=== PATIENT | female | born 1930 | race Caucasian/White ===

== ENCOUNTER → 2016-10-25 | Outpatient (CLI) | payer MEDICARE, BC, OTHER ==
[2016-10-25 09:05] LABS: ALANINE AMINOTRANSFERASE 24 U/L (9-52); ALBUMIN 3.5 g/dL (3.5-5.0); ALKALINE PHOSPHATASE 102 U/L (38-126); ANION GAP 9 (5-19); ASPARTATE AMINO TRANSFERASE 30 U/L (14-36); BILIRUBIN,TOTAL 0.6 mg/dL (0.2-1.3); BLOOD UREA NITROGEN 36 mg/dL (7-20); CALCIUM 9.5 mg/dL (8.4-10.2); CARBON DIOXIDE 25 mmol/L (22-30); CHLORIDE 97 mmol/L (98-107); CREATININE RESULT 0.85 mg/dL (0.52-1.25); Direct HDL 84 mg/dL (>40); GLUCOSE 90 mg/dL (75-110); POTASSIUM 5.2 mmol/L (3.6-5.0); SODIUM 131.2 mmol/L (137-145); TOTAL PROTEIN 6.4 g/dL (6.3-8.2); TRIGLYCERIDES 113 mg/dL (<150)
[2016-10-25 09:16] LABS: DIRECT LDL 114 mg/dL (<100)
== END ==
LOC: OD 07:27
PROVIDERS: ATTEND Internal Medicine
DX: E78.4 Other hyperlipidemia (principal); I10 Essential (primary) hypertension; E11.9 Type 2 diabetes mellitus without complications; Z79.899 Other long term (current) drug therapy; R09.89 Other specified symptoms and signs involving the circulatory and respiratory systems; I48.0 Paroxysmal atrial fibrillation; I34.0 Nonrheumatic mitral (valve) insufficiency; I25.2 Old myocardial infarction; I35.0 Nonrheumatic aortic (valve) stenosis
CPT/HCPCS: 36415; 80053; 80061

== ENCOUNTER 2016-12-02 18:27 | Emergency (ER) | payer MEDICARE, BC, OTHER ==
--- NOTE | 2016-12-02 19:02 | ER Document Report ---
ED Medical Screen (RME) - General Chief Complaint: Thumb Injury Stated Complaint: RIGHT THUMB INJURY Mode of Arrival: Wheelchair Information source: Patient Notes: Patient presents to the emergency department with right thumb injury. Reports she slammed it in the medicine cabinet. I have greeted and performed a rapid initial assessment of this patient. A comprehensive ED assessment and evaluation of the patient, analysis of test results and completion of the medical decision making process will be conducted by additional ED providers. TRAVEL OUTSIDE OF THE [place] IN LAST 30 DAYS: No - Related Data Allergies/Adverse Reactions: amoxicillin trihydrate [From Augmentin] Allergy (Verified 07/23/16 16:32) atorvastatin calcium [From Lipitor] Allergy (Verified 07/23/16 16:32) bacitracin [From Neosporin] Allergy (Verified 07/23/16 16:32) bacitracin zinc [From Neosporin] Allergy (Verified 07/23/16 16:32) calcitonin,salmon,synthetic [From Miacalcin] Allergy (Verified 07/23/16 16:32) celecoxib [From Celebrex] Allergy (Verified 07/23/16 16:32) ezetimibe [From Vytorin 10-10] Allergy (Verified 07/23/16 16:32) gramicidin D [From Neosporin] Allergy (Verified 07/23/16 16:32) irbesartan [From Avapro] Allergy (Verified 07/23/16 16:32) meloxicam [From Mobic] Allergy (Verified 07/23/16 16:32) morphine [Morphine] Allergy (Verified 07/23/16 16:32) moxifloxacin HCl [From Avelox] Allergy (Verified 07/23/16 16:32) neomycin sulfate [From Neosporin] Allergy (Verified 07/23/16 16:32) polymyxin B [From Neosporin] Allergy (Verified 07/23/16 16:32) polymyxin B sulfate [From Neosporin] Allergy (Verified 07/23/16 16:32) Potassium Clavulanate * [From Augmentin] Allergy (Verified 07/23/16 16:32) rofecoxib [From Vioxx] Allergy (Verified 07/23/16 16:32) simvastatin [From Vytorin 10-10] Allergy (Verified 07/23/16 16:32) tetracycline [Tetracycline] Allergy (Verified 07/23/16 16:32) Past Medical History - Past Medical History Cardiac Medical History: Reports: Hx Atrial Fibrillation, Hx Coronary Artery Disease, Hx Heart Attack - STATES TOLD HAD SILENT ME, Hx Hypertension Pulmonary Medical History: Denies: Hx Asthma, Hx Bronchitis, Hx COPD, Hx Pneumonia Neurological Medical History: Reports: 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 Denies: Hx Seizures Endocrine Medical History: Reports: Hx Diabetes Mellitus Type 2 Musculoskeltal Medical History: Reports Hx Arthritis Past Surgical History: Reports: Hx Cholecystectomy, Hx Hysterectomy, Hx Oral Surgery - dental, Hx Orthopedic Surgery - L knee replacement, trigger finger, Hx Tonsillectomy - Immunizations Hx Diphtheria, Pertussis, Tetanus Vaccination: Yes - 12/29/12 Physical Exam - Vital signs Vitals: Temp Pulse Resp BP Pulse Ox 97.5 F 75 18 148/68 H 97 12/02/16 18:34 12/02/16 18:34 12/02/16 18:34 12/02/16 18:34 12/02/16 18:34 Course - Vital Signs Vital signs: Temp Pulse Resp BP Pulse Ox 97.5 F 75 18 148/68 H 97 12/02/16 18:34 12/02/16 18:34 12/02/16 18:34 12/02/16 18:34 12/02/16 18:34
--- NOTE | 2016-12-02 20:46 | ER Document Report ---
HPI - HPI Patient complains to provider of: finger injury Pain Level: 4 Context: Patient is a 86 old female presents emergency Department complaining of right thumb pain. Patient states that she was at her home and was closing a filing cabinet drawer which slammed and caught into the nail bed. Patient admits to pain and swelling. The full range of motion and sensation - REPRODUCTIVE Reproductive: DENIES: : - DERM Skin Color: Normal, [place] Past Medical History - General Information source: Patient - Social History Smoking Status: Never Smoker Family History: Reviewed & Not Pertinent Patient has suicidal ideation: No Patient has homicidal ideation: No - Past Medical History Cardiac Medical History: Reports: Hx Atrial Fibrillation, Hx Coronary Artery Disease, Hx Heart Attack - STATES TOLD HAD SILENT [place], Hx Hypertension Pulmonary Medical History: Denies: Hx Asthma, Hx Bronchitis, Hx COPD, Hx Pneumonia Neurological Medical History: Reports: 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 Denies: Hx Seizures Endocrine Medical History: Reports: Hx Diabetes Mellitus Type 2 Renal/ Medical History: Denies: Hx Peritoneal Dialysis Musculoskeltal Medical History: Reports Hx Arthritis Past Surgical History: Reports: Hx Cholecystectomy, Hx Hysterectomy, Hx Oral Surgery - dental, Hx Orthopedic Surgery - L knee replacement, trigger finger, Hx Tonsillectomy - Immunizations Hx Diphtheria, Pertussis, Tetanus Vaccination: Yes - 12/29/12 Hx Pneumococcal Vaccination: 06/24/06 Vertical Provider Document - CONSTITUTIONAL Agree With Documented VS: Yes Exam Limitations: No Limitations General Appearance: WD/WN, No Apparent Distress - INFECTION CONTROL TRAVEL OUTSIDE OF THE [place] IN LAST 30 DAYS: No - RESPIRATORY O2 Sat by Pulse Oximetry: 97 - CARDIOVASCULAR Pulses: Normal: Radial Notes: Capillary refill less than 2 seconds in all upper extremity digits. - MUSCULOSKELETAL/EXTREMETIES Musculoskeletal/Extremeties: MAEW, FROM, No Edema, Eccymosis - Evidence of ecchymosis under the nail bed but no evidence of subungual hematoma requiring drainage Notes: No evidence of bleeding or open wound. - NEURO Level of Consciousness: Awake, Alert, Appropriate Motor/Sensory: No Motor Deficit, No Sensory Deficit - DERM Integumentary: Warm, Dry, No Rash Course - Re-evaluation Re-evalutation: 12/02/16 20:45 Patient is a 6-year-old female complains of finger injury today. X-ray does not show any acute fracture. No evidence of some local hematoma requiring drainage. Patient instructed on icing and elevation as well as over-the- counter Tylenol as needed for pain. - Vital Signs Vital signs: Temp Pulse Resp BP Pulse Ox 97.5 F 75 18 148/68 H 97 12/02/16 18:34 12/02/16 18:34 12/02/16 18:34 12/02/16 18:34 12/02/16 18:34 Discharge - Discharge Clinical Impression: Finger injury Condition: Good Disposition: HOME, SELF-CARE Instructions: Ice & Elevation ([facility]), Acetaminophen Forms: Elevated Blood Pressure Referrals: ANJALI FONTAINE MD [Primary Care Provider] - Follow up as needed
[2016-12-02 20:59] VITALS: BP 150/58
== END 2016-12-02 21:10 | disposition home or self-care (01) ==
LOC: ER 18:27
DX: S69.91XA Unspecified injury of right wrist, hand and finger(s), initial encounter (principal); W23.0XXA Caught, crushed, jammed, or pinched between moving objects, initial encounter; I48.91 Unspecified atrial fibrillation; I25.10 Atherosclerotic heart disease of native coronary artery without angina pectoris; I10 Essential (primary) hypertension; E11.9 Type 2 diabetes mellitus without complications; Z90.49 Acquired absence of other specified parts of digestive tract; Z90.710 Acquired absence of both cervix and uterus; Z86.73 Personal history of transient ischemic attack (TIA), and cerebral infarction without residual deficits; Z96.652 Presence of left artificial knee joint; I25.2 Old myocardial infarction
CPT/HCPCS: 99283

== ENCOUNTER → 2016-12-04 | Outpatient (CLI) | payer MEDICARE, BC, OTHER ==
[~2016-12-04] MED LIST: REGADENOSON INJ 0.4 MG/5 ML DISP.SYRIN IV ONE
--- NOTE | 2016-12-05 19:15 | DRAGON STRESS TEST REPORT ---
Intravenous Lexiscan Cardiolite stress test using single photon emmision computerized tomography. Date of procedure: 12/04/2016. Ordering Provider: Dr. Meena Peck. Primary Care Physician: Dr. Joon Bolden. Indication: Chest pain and dyspnea on exertion. Coronary risk factors: Age, non -insulin-dependent diabetes mellitus, hypertension, and family history of coronary artery disease. Resting EKG: Sinus Rhythm. Within Normal Limits. Stress EKG: No changes of ischemia. The patient had no chest pain or discomfort, and there were no arrhythmias seen. Reason for termination: Protocol. Conclusions: Normal EKG and hemodynamic response to IV Lexiscan. Nuclear data: At rest the patient was given 11.77 millicuries of technetium 99m sestamibi injected intravenously. As per protocol rest non gated SPECT images were obtained. Subsequently the patient was given intravenous Lexiscan at a dose of 0.4 mg in 5 mL intravenously, followed by flush with normal saline. Subsequently the stress dose of 36.0 millicuries of technetium 99m sestamibi was injected intravenously. As per protocol stress gated images were obtained. Nuclear interpretation: Review of images showed that there is a perfusion defect in the mid and basal inferior kessler which is slightly more prominent in the stress images compared with the rest images. This area has decreased motion contraction and thickening by gated study. Also there is a mild perfusion defect in the distal inferolateral wall in both the rest and stress images. This area of the distal inferolateral wall has diminished motion contraction and thickening. The rest of the segments of the myocardium had normal perfusion at rest, and normal perfusion post stress with IV Lexiscan. The rest of the Segments of the myocardium had normal motion, contraction, and thickening by gated study. T. I D. ratio was abnormal at 1.36. Visually this is not reliable.. Computer read rest, and stress left ventricular ejection fraction were 69 %, and an 73 % , respectively. Conclusion: 1. There is scintigraphic evidence of Lexiscan induced minimal myocardial ischemia in a setting of scar in the mid and basal inferior kessler 2. There is scintigraphic evidence of mild myocardial infarction/scar involving the distal inferolateral wall. Recommendations: 1.aggressive treatment of coronary artery disease. 2.if the patient continues to be symptomatic with chest pains and dyspnea on exertion, then would recommend a cardiac catheterization to see if patient has ischemic mitral regurgitation, and the extent of presence of coronary artery disease the patient. 3.Aggressive risk factor modification, and treating the underlying co- morbidities. MTDD
== END ==
LOC: RAD 06:53
PROVIDERS: ATTEND Specialist
DX: R07.9 Chest pain, unspecified (principal); R06.09 Other forms of dyspnea
CPT/HCPCS: 93017; 78452; A9500; J2785; Q9969

== ENCOUNTER 2016-12-05 18:29 | Inpatient (IN) | payer MEDICARE, BC, OTHER ==
[2016-12-05] MEDS ORDERED: NORMAL SALINE 1000 ML 1,000 ML IV ONE ×2 (20:13→23:00)
--- NOTE | 2016-12-05 20:14 | ER Document Report ---
ED General - General Chief Complaint: Nausea/Vomiting Stated Complaint: NAUSEA,VOMITING Notes: Patient is an 86-year-old female who presents with persistent vomiting. States that she woke up feeling slightly unwell today but then began having persistent vomiting shortly after eating breakfast. States she had 7-8 episodes of vomiting and has been unable to tolerate any oral intake since that time. The vomitus was described as the contents of what she had eaten for breakfast as well as yellowish liquid. She did not have any diarrheal bowel movements. Denies any focal abdominal pain. No history of similar symptoms in the past. Nothing was noted to improve or worsen her symptoms. She has not seen her primary care doctor regarding today's concerns. TRAVEL OUTSIDE OF THE [place] IN LAST 30 DAYS: No - Related Data Allergies/Adverse Reactions: amoxicillin trihydrate [From Augmentin] Allergy (Verified 07/23/16 16:32) atorvastatin calcium [From Lipitor] Allergy (Verified 07/23/16 16:32) bacitracin [From Neosporin] Allergy (Verified 07/23/16 16:32) bacitracin zinc [From Neosporin] Allergy (Verified 07/23/16 16:32) calcitonin,salmon,synthetic [From Miacalcin] Allergy (Verified 07/23/16 16:32) celecoxib [From Celebrex] Allergy (Verified 07/23/16 16:32) ezetimibe [From Vytorin 10-10] Allergy (Verified 07/23/16 16:32) gramicidin D [From Neosporin] Allergy (Verified 07/23/16 16:32) irbesartan [From Avapro] Allergy (Verified 07/23/16 16:32) meloxicam [From Mobic] Allergy (Verified 07/23/16 16:32) morphine [Morphine] Allergy (Verified 07/23/16 16:32) moxifloxacin HCl [From Avelox] Allergy (Verified 07/23/16 16:32) neomycin sulfate [From Neosporin] Allergy (Verified 07/23/16 16:32) polymyxin B [From Neosporin] Allergy (Verified 07/23/16 16:32) polymyxin B sulfate [From Neosporin] Allergy (Verified 07/23/16 16:32) Potassium Clavulanate * [From Augmentin] Allergy (Verified 07/23/16 16:32) rofecoxib [From Vioxx] Allergy (Verified 07/23/16 16:32) simvastatin [From Vytorin 10-10] Allergy (Verified 07/23/16 16:32) tetracycline [Tetracycline] Allergy (Verified 07/23/16 16:32) Past Medical History - General Information source: Patient - Social History Smoking Status: Never Smoker Frequency of alcohol use: None Drug Abuse: None Lives with: Alone Family History: Reviewed & Not Pertinent - Past Medical History Cardiac Medical History: Reports: Hx Atrial Fibrillation, Hx Coronary Artery Disease, Hx Heart Attack - STATES TOLD HAD SILENT CT, Hx Hypertension Pulmonary Medical History: Denies: Hx Asthma, Hx Bronchitis, Hx COPD, Hx Pneumonia Neurological Medical History: Reports: 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 Denies: Hx Seizures Endocrine Medical History: Reports: Hx Diabetes Mellitus Type 2 Renal/ Medical History: Denies: Hx Peritoneal Dialysis Musculoskeltal Medical History: Reports Hx Arthritis Past Surgical History: Reports: Hx Cholecystectomy, Hx Hysterectomy, Hx Oral Surgery - dental, Hx Orthopedic Surgery - L knee replacement, trigger finger, Hx Tonsillectomy - Immunizations Hx Diphtheria, Pertussis, Tetanus Vaccination: Yes - 12/29/12 Hx Pneumococcal Vaccination: 06/24/06 Review of Systems - Review of Systems Notes: Constitutional: Negative for fever. HENT: Negative for sore throat. Eyes: Negative for visual changes. Cardiovascular: Negative for chest pain. Respiratory: Negative for shortness of breath. Gastrointestinal: Negative for abdominal pain, positive for vomiting Genitourinary: Negative for dysuria. Musculoskeletal: Negative for back pain. Skin: Negative for rash. Neurological: Negative for headaches, weakness or numbness. 10 point ROS negative except as marked above and in HPI. Physical Exam - Vital signs Vitals: Temp 97.5 F 12/05/16 18:39 Interpretation: Normal Notes: PHYSICAL EXAMINATION: GENERAL: Appears uncomfortable but in no acute distress HEAD: Atraumatic, normocephalic. EYES: Pupils equal round and reactive to light, extraocular movements intact, sclera anicteric, conjunctiva are normal. ENT: nares patent, oropharynx clear without exudates. Moderately dry mucous membranes. NECK: Normal range of motion, supple without lymphadenopathy LUNGS: Breath sounds clear to auscultation bilaterally and equal. No wheezes rales or rhonchi. HEART: Regular rate and rhythm without murmurs ABDOMEN: Soft, nontender, normoactive bowel sounds. No guarding, no rebound. No masses appreciated. EXTREMITIES: Normal range of motion, no pitting or edema. No cyanosis. NEUROLOGICAL: No focal neurological deficits. Moves all extremities spontaneously and on command. PSYCH: Normal mood, normal affect. SKIN: Warm, Dry, normal turgor, no rashes or lesions noted. Course - Re-evaluation Re-evalutation: 12/05/16 20:13 Patient presents with persistent nonbilious vomiting that started abruptly several hours prior to arrival. Evaluation, abdominal exam is benign without any focal tenderness rebound or guarding. Patient does not have a gallbladder and so biliary pathology seems unlikely. Likewise patient's clinical history and exam is not consistent with an acute appendicitis, pancreatitis, mesenteric ischemia, nephrolithiasis or pyelonephritis. Primary concern given patient's persistent vomiting and feeling of abdominal distention which is clinically apparent on exam is a small bowel obstruction versus an ileus. Will proceed with laboratories and a CT the abdomen and pelvis and reassess. 12/05/16 22:07 CT the abdomen and pelvis is normal. Patient does have a urinary tract infection which could induce her vomiting. However, patient began having extremely malodorous bowel movements here in the emergency department and continued to have difficulty tolerating oral intake. She has continued to have nonbilious vomiting and is having difficulty even tolerating water. Because of her difficulty tolerating oral intake and continued output of vomiting and diarrhea, she has been admitted to the hospitalist for observation and continued resuscitation - Vital Signs Vital signs: Temp Pulse Resp BP Pulse Ox 98.2 F 80 16 125/89 H 98 12/06/16 02:00 12/05/16 18:46 12/06/16 01:01 12/06/16 01:00 12/05/16 23:59 - Laboratory Result Diagrams: 12/05/16 18:42 12/05/16 20:30 Laboratory results interpreted by me: 12/05/16 12/05/16 12/05/16 18:42 19:16 20:30 WBC 16.5 H Seg Neuts % (Manual) 92 H Band Neutrophils % 2 L Lymphocytes % (Manual) 2 L Abs Neuts (Manual) 15.5 H Abs Lymphs (Manual) 0.3 L Carbon Dioxide 20 L BUN 27 H Glucose 160 H Total Protein 6.2 L Urine Ketones TRACE H Ur Leukocyte Esterase MODERATE H Urine Ascorbic Acid 40 H - Diagnostic Test Radiology reviewed: Reports reviewed Discharge - Discharge Clinical Impression: Vomiting Qualifiers: Vomiting type: unspecified Vomiting Intractability: non-intractable Nausea presence: with nausea Qualified Code(s): R11.2 - Nausea with vomiting, unspecified Urinary tract infection Qualifiers: Urinary tract infection type: acute cystitis Hematuria presence: without hematuria Qualified Code(s): N30.00 - Acute cystitis without hematuria Diarrhea Qualifiers: Diarrhea type: infectious Qualified Code(s): A09 - Infectious gastroenteritis and colitis, unspecified Condition: Good Disposition: ADMITTED OBSERVATION Admitting Provider: [facility] Admitted: Telemetry
[2016-12-05 20:15] LABS: HEMATOCRIT 39.4 % (36.0-47.0); HEMOGLOBIN 13.1 g/dL (12.0-15.5); HGB HCT DIFFERENCE -0.1; MEAN CORPUSCULAR HEMOGLOBIN 30.4 pg (27.0-33.4); MEAN CORPUSCULAR HGB CONC 33.2 g/dL (32.0-36.0); MEAN CORPUSCULAR VOLUME 92 fl (80-97); RED BLOOD COUNT 4.29 10^6/uL (3.72-5.28); RED CELL DISTRIBUTION WIDTH 13.8 % (11.5-14.0); WHITE BLOOD COUNT 16.5 10^3/uL (4.0-10.5)
[2016-12-05 20:30] LABS: BAND NEUTROPHILS % (MANUAL) 2 % (3-5); BASOPHILS % (MANUAL) 0 % (0-2); EOSINOPHILS % (MANUAL) 1 % (0-6); LYMPHOCYTES % (MANUAL) 2 % (13-45); TOTAL CELLS COUNTED 100
[2016-12-05 20:31] LABS: RBC MORPHOLOGY COMMENT NORMO-CYTIC/CHROMIC
[2016-12-05 20:44] LABS: APPEARANCE,URINE SLIGHTLY-CLOUDY; BILIRUBIN,URINE NEGATIVE (NEGATIVE); GLUCOSE, URINE NEGATIVE (NEGATIVE); KETONES,URINE TRACE mg/dL (NEGATIVE); LEUKOCYTE ESTERASE,URINE MODERATE (NEGATIVE); NITRITE,URINE NEGATIVE (NEGATIVE); PROTEIN,URINE NEGATIVE (NEGATIVE); URINE SPECIFIC GRAVITY 1.021; UROBILINOGEN,URINE NEGATIVE mg/dL (<2.0)
[2016-12-05 21:01] LABS: ALANINE AMINOTRANSFERASE 25 U/L (9-52); ALBUMIN 3.9 g/dL (3.5-5.0); ALKALINE PHOSPHATASE 100 U/L (38-126); ANION GAP 13 (5-19); ASPARTATE AMINO TRANSFERASE 27 U/L (14-36); BILIRUBIN,DIRECT 0.1 mg/dL (0.0-0.4); BILIRUBIN,TOTAL 0.5 mg/dL (0.2-1.3); BLOOD UREA NITROGEN 27 mg/dL (7-20); CALCIUM 9.4 mg/dL (8.4-10.2); CARBON DIOXIDE 20 mmol/L (22-30); CHLORIDE 105 mmol/L (98-107); CREATININE RESULT 0.69 mg/dL (0.52-1.25); GLUCOSE 160 mg/dL (75-110); LIPASE 96.2 U/L (23-300); POTASSIUM 4.2 mmol/L (3.6-5.0); SODIUM 138.2 mmol/L (137-145); TOTAL PROTEIN 6.2 g/dL (6.3-8.2)
[2016-12-05] MEDS ORDERED: CEFTRIAXONE 1 GM/D5W RTU 50 ML IV ONE (21:46)
[2016-12-05] MEDS ORDERED: ONDANSETRON ODT 4 MG TAB (6 TAB/DSPK) PO PRN (22:10)
[2016-12-05] MEDS ORDERED: NORMAL SALINE 1000 ML 1,000 ML IV PRN (23:45)
[2016-12-05] MEDS ORDERED: DEXTROSE 40% GEL 15 GM TUBE PO PRN ×2 (23:52)
[2016-12-05] MEDS ORDERED: GLUCAGON,HUMAN RECOMB 1 MG INJ IM PRN (23:52)
[2016-12-05] MEDS ORDERED: ACETAMINOPHEN 325 MG TABLET PO PRN (23:52)
[2016-12-05] MEDS ORDERED: ONDANSETRON HCL INJ/PF 4 MG/2 ML SDV IV PRN (23:52)
[2016-12-05] MEDS ORDERED: IPRATROPIUM/ALBUTEROL 0.5-2.5 MG/3 ML AMPUL NEB PRN (23:52)
[2016-12-05] MEDS ORDERED: DEXTROSE 50%-WATER 25 GM/50 ML DISP.SYRIN IV PRN ×2 (23:52)
[2016-12-06] MEDS: METRONIDAZOLE 500 MG TABLET PO SCH ×5 (01:28→23:33)
--- NOTE | 2016-12-06 03:29 | PDOC H&P ---
History of Present Illness Admission Date/PCP: 12/05/16 23:53 PIETRO CASON, Patient complains of: Nausea vomiting and diarrhea History of Present Illness: JUAN BRANTLEY is a 86 year old female with a past medical history of diabetes , dyslipidemia, coronary artery disease, CVA, hypertension and diverticular disease who had been her usual state of health until approximately 12 hours prior to presentation. She admits approximately 8 episodes of vomiting gastric content following her a.m. meal once in the emergency room she developed severe diarrhea. She admits to suspect meal the night before, denies new medication, significant constipation or fever. In the emergency room she's found to have leukocytosis and intractable nausea vomiting diarrhea and referred to the hospitalist for admission. Past Medical History Cardiac Medical History: Reports: Atrial Fibrillation, Coronary Artery Disease, Myocardial Infarction - STATES TOLD HAD SILENT [place], Hypertension Pulmonary Medical History: Denies: Asthma, Bronchitis, Chronic Obstructive Pulmonary Disease (COPD), Pneumonia Neurological Medical History: Denies: Seizures Endocrine Medical History: Reports: Diabetes Mellitus Type 2 Musculoskeltal Medical History: Reports: Arthritis Hematology: Denies: Anemia, Sickle Cell Disease Past Surgical History Past Surgical History: Reports: Cholecystectomy, Hysterectomy, Orthopedic Surgery - L knee replacement, trigger finger, Tonsillectomy Denies: Amputation Social History Information Source: Patient Lives with: Alone Smoking Status: Never Smoker Frequency of Alcohol Use: None Drugs: None - Advance Directive Resuscitation Status: Full Code Family History Family History: Hypertension Parental Family History Reviewed: Yes Children Family History Reviewed: Yes Sibling(s) Family History Reviewed.: Yes Medication/Allergy Home Medications: Acetaminophen [Tylenol 325 mg Tablet] 650 mg PO Q4HP PRN 02/11/12 Amoxicillin Trihydrate [Amoxil 500 mg Capsule] 4 tab PO ASDIR PRN 02/11/12 Aspirin [Aspirin 81 mg Chewable Tablet] 81 mg PO DAILY 02/11/12 Docusate Sodium [Colace 100 mg Capsule] 2 tab PO DAILY 02/11/12 Folic Acid 1 mg PO DAILY 02/11/12 Lisinopril [Prinivil 10 mg Tablet] 10 mg PO DAILY 02/11/12 Metformin HCl [Glucophage 500 mg Tablet] 500 mg PO DAILY 02/11/12 Metoprolol Tartrate [Lopressor 25 mg Tablet] 50 mg PO BID 02/11/12 Multivitamin [Multivitamins] 1 each PO DAILY 02/11/12 Psyllium Seed [Metamucil-Sf Powder 5.85 gm Packet] 1 each PO DAILY 02/11/12 Nitroglycerin 0.4 mg SL ASDIR #20 tab.subl 07/25/14 Levothyroxine Sodium 50 mcg PO DAILY 08/26/15 Ergocalciferol (Vitamin D2) [Vitamin D2] 50,000 unit PO ASDIR PRN 07/23/16 Hydrochlorothiazide 25 mg PO DAILY 07/23/16 Hydrocortisone/Pramoxine [Analpram Hc 1% Cream] 30 gm RC ASDIR PRN 07/23/16 Nitroglycerin [Nitroglycerin Patch] 1 each TD DAILY 07/23/16 Vit C/E/Zn/Coppr/Lutein/Zeaxan [Preservision Areds 2 Softgel] 2 each PO BID Cephalexin Monohydrate [Keflex 500 mg Capsule] 500 mg PO QID #20 capsule Allergies/Adverse Reactions: amoxicillin trihydrate [From Augmentin] Allergy (Verified 07/23/16 16:32) atorvastatin calcium [From Lipitor] Allergy (Verified 07/23/16 16:32) bacitracin [From Neosporin] Allergy (Verified 07/23/16 16:32) bacitracin zinc [From Neosporin] Allergy (Verified 07/23/16 16:32) calcitonin,salmon,synthetic [From Miacalcin] Allergy (Verified 07/23/16 16:32) celecoxib [From Celebrex] Allergy (Verified 07/23/16 16:32) ezetimibe [From Vytorin 10-10] Allergy (Verified 07/23/16 16:32) gramicidin D [From Neosporin] Allergy (Verified 07/23/16 16:32) irbesartan [From Avapro] Allergy (Verified 07/23/16 16:32) meloxicam [From Mobic] Allergy (Verified 07/23/16 16:32) morphine [Morphine] Allergy (Verified 07/23/16 16:32) moxifloxacin HCl [From Avelox] Allergy (Verified 07/23/16 16:32) neomycin sulfate [From Neosporin] Allergy (Verified 07/23/16 16:32) polymyxin B [From Neosporin] Allergy (Verified 07/23/16 16:32) polymyxin B sulfate [From Neosporin] Allergy (Verified 07/23/16 16:32) Potassium Clavulanate * [From Augmentin] Allergy (Verified 07/23/16 16:32) rofecoxib [From Vioxx] Allergy (Verified 07/23/16 16:32) simvastatin [From Vytorin 10-10] Allergy (Verified 07/23/16 16:32) tetracycline [Tetracycline] Allergy (Verified 07/23/16 16:32) Review of Systems Constitutional: ABSENT: chills, fever(s), headache(s), weight gain, weight loss Eyes: ABSENT: visual disturbances Ears: ABSENT: hearing changes Cardiovascular: ABSENT: chest pain, dyspnea on exertion, edema, orthropnea, palpitations Respiratory: ABSENT: cough, hemoptysis Gastrointestinal: ABSENT: abdominal pain, constipation, diarrhea, hematemesis, hematochezia, nausea, vomiting Genitourinary: ABSENT: dysuria, hematuria Musculoskeletal: ABSENT: joint swelling Integumentary: ABSENT: rash, wounds Neurological: ABSENT: abnormal gait, abnormal speech, confusion, dizziness, focal weakness, syncope Psychiatric: ABSENT: anxiety, depression, homidical ideation, suicidal ideation Endocrine: ABSENT: cold intolerance, heat intolerance, polydipsia, polyuria Hematologic/Lymphatic: ABSENT: easy bleeding, easy bruising Physical Exam Vital Signs: Temp Pulse Resp BP Pulse Ox 98.2 F 80 16 125/89 H 98 12/06/16 02:00 12/05/16 18:46 12/06/16 01:01 12/06/16 01:00 12/05/16 23:59 General appearance: PRESENT: no acute distress, well-developed, well-nourished Head exam: PRESENT: atraumatic, normocephalic Eye exam: PRESENT: conjunctiva pink, EOMI, PERRLA. ABSENT: scleral icterus Ear exam: PRESENT: normal external ear exam Mouth exam: PRESENT: moist, tongue midline Neck exam: ABSENT: carotid bruit, JVD, lymphadenopathy, thyromegaly Respiratory exam: PRESENT: clear to auscultation italo. ABSENT: rales, rhonchi, wheezes Cardiovascular exam: PRESENT: RRR. ABSENT: diastolic murmur, rubs, systolic murmur Pulses: PRESENT: normal dorsalis pedis pul Vascular exam: PRESENT: normal capillary refill GI/Abdominal exam: PRESENT: normal bowel sounds, soft. ABSENT: distended, guarding, mass, organolmegaly, rebound, tenderness Rectal exam: PRESENT: deferred Extremities exam: PRESENT: full ROM. ABSENT: calf tenderness, clubbing, pedal edema Neurological exam: PRESENT: alert, awake, oriented to person, oriented to place , oriented to time, oriented to situation, CN II-XII grossly intact. ABSENT: motor sensory deficit Psychiatric exam: PRESENT: appropriate affect, normal mood. ABSENT: homicidal ideation, suicidal ideation Skin exam: PRESENT: dry, intact, warm. ABSENT: cyanosis, rash Results Impressions: Abdomen/Pelvis CT 12/05/16 20:13 IMPRESSION: No evidence for bowel obstruction. NO ACUTE FINDING IN THE ABDOMEN OR PELVIS ON CT SCAN WITH IV CONTRAST. Assessment & Plan - Diagnosis (1) Gastroenteritis Is this a current diagnosis for this admission?: YesPlan: Given the revelation of a suspect meal this likely represents gastroenteritis she is started on symptomatic management IV fluid and electrolyte repletion (2) Diabetes 1.5, managed as type 2 Is this a current diagnosis for this admission?: YesPlan: Clear liquid diet Humalog sliding scale holding metformin (3) Urinary tract infection Qualifiers: Urinary tract infection type: acute cystitis Hematuria presence: without hematuria Qualified Code(s): N30.00 - Acute cystitis without hematuria Is this a current diagnosis for this admission?: YesPlan: Urine culture obtained and pending empiric Rocephin initiated - Time Time Spent: 50 to 70 Minutes
[2016-12-06] MEDS: LEVOTHYROXINE SODIUM 0.05 MG TABLET PO SCH (06:34)
[2016-12-06] MEDS: HEPARIN SOD (PORCINE) 5,000 UNIT/ML 1 ML SYRINGE SUBCUT SCH ×2 (06:35→13:31)
[2016-12-06 06:45] LABS: HEMOGLOBIN 12.1 g/dL (12.0-15.5); HGB HCT DIFFERENCE 0.3; MEAN CORPUSCULAR HEMOGLOBIN 30.6 pg (27.0-33.4); MEAN CORPUSCULAR HGB CONC 33.6 g/dL (32.0-36.0); MEAN CORPUSCULAR VOLUME 91 fl (80-97); RED BLOOD COUNT 3.95 10^6/uL (3.72-5.28); RED CELL DISTRIBUTION WIDTH 13.9 % (11.5-14.0)
[2016-12-06 06:51] LABS: ALANINE AMINOTRANSFERASE 27 U/L (9-52); ALBUMIN 3.5 g/dL (3.5-5.0); ALKALINE PHOSPHATASE 81 U/L (38-126); ASPARTATE AMINO TRANSFERASE 30 U/L (14-36); BILIRUBIN,DIRECT 0.1 mg/dL (0.0-0.4); BILIRUBIN,TOTAL 0.4 mg/dL (0.2-1.3); BLOOD UREA NITROGEN 27 mg/dL (7-20); CALCIUM 8.6 mg/dL (8.4-10.2); CARBON DIOXIDE 22 mmol/L (22-30); CHLORIDE 107 mmol/L (98-107); GLUCOSE 136 mg/dL (75-110); POTASSIUM 3.8 mmol/L (3.6-5.0); TOTAL PROTEIN 5.9 g/dL (6.3-8.2)
[2016-12-06 06:56] LABS: ANION GAP 13 (5-19); SODIUM 141.6 mmol/L (137-145)
[2016-12-06 07:16] LABS: BASOPHILS % (MANUAL) 0 % (0-2); TOTAL CELLS COUNTED 100
[2016-12-06 07:26] LABS: BAND NEUTROPHILS % (MANUAL) 14 % (3-5); EOSINOPHILS % (MANUAL) 1 % (0-6); LYMPHOCYTES % (MANUAL) 2 % (13-45)
[2016-12-06 07:28] LABS: RBC MORPHOLOGY COMMENT NORMO-CYTIC/CHROMIC; TOXIC GRANULATION SLIGHT; TOXIC VACUOLATION PRESENT
[2016-12-06] MEDS ORDERED: ASPIRIN 81 MG TABLET, CHEWABLE PO SCH (10:00)
[2016-12-06] MEDS: FOLIC ACID 1 MG TABLET PO SCH (11:00)
[2016-12-06] MEDS: HYDROCHLOROTHIAZIDE 25 MG TABLET PO SCH (11:23)
[2016-12-06] MEDS: METOPROLOL TARTRATE 50 MG TABLET PO SCH (11:23)
--- NOTE | 2016-12-06 11:58 | PDOC PROGRESS REPORT ---
Subjective Progress Note for:: 12/06/16 Subjective:: Patient is extremely weak and nauseous She does not have any vomiting, but diarrhea still persistent watery quite profuse No blood no mucus C. difficile toxin was negative CT abdomen and pelvis was unremarkable her daughter at the bedside had similar symptoms in the last 24 hours , Physical Exam Vital Signs: Temp Pulse Resp BP Pulse Ox 98.2 F 78 14 107/42 L 96 12/06/16 07:19 12/06/16 10:46 12/06/16 10:23 12/06/16 10:46 12/06/16 10:46 Intake & Output 12/05/16 12/06/16 12/07/16 00:59 00:59 00:59 Intake Total 1200 Balance 1200 Weight 88.3 kg General appearance: PRESENT: no acute distress, well-developed, well-nourished, other - Pale and looks ill Head exam: PRESENT: atraumatic, normocephalic Eye exam: PRESENT: conjunctiva pink, EOMI, PERRLA. ABSENT: scleral icterus Ear exam: PRESENT: normal external ear exam Mouth exam: PRESENT: moist, tongue midline Neck exam: ABSENT: carotid bruit, JVD, lymphadenopathy, thyromegaly Respiratory exam: PRESENT: clear to auscultation italo. ABSENT: rales, rhonchi, wheezes Cardiovascular exam: PRESENT: RRR. ABSENT: diastolic murmur, rubs, systolic murmur Pulses: PRESENT: normal dorsalis pedis pul Vascular exam: PRESENT: normal capillary refill GI/Abdominal exam: PRESENT: normal bowel sounds, soft. ABSENT: distended, guarding, mass, organolmegaly, rebound, tenderness Rectal exam: PRESENT: deferred Extremities exam: PRESENT: full ROM. ABSENT: calf tenderness, clubbing, pedal edema Neurological exam: PRESENT: alert, awake, oriented to person, oriented to place , oriented to time, oriented to situation, CN II-XII grossly intact. ABSENT: motor sensory deficit Psychiatric exam: PRESENT: appropriate affect, normal mood. ABSENT: homicidal ideation, suicidal ideation Skin exam: PRESENT: dry, intact, warm. ABSENT: cyanosis, rash Results Laboratory Results: 12/06/16 06:18 12/06/16 06:18 12/06/16 12/06/16 06:18 06:18 WBC 8.0 RBC 3.95 Hgb 12.1 Hct 36.0 MCV 91 MCH 30.6 MCHC 33.6 RDW 13.9 Plt Count 215 Seg Neutrophils % Not Reportable Lymphocytes % Not Reportable Monocytes % Not Reportable Eosinophils % Not Reportable Basophils % Not Reportable Absolute Neutrophils Not Reportable Absolute Lymphocytes Not Reportable Absolute Monocytes Not Reportable Absolute Eosinophils Not Reportable Absolute Basophils Not Reportable Sodium 141.6 Potassium 3.8 Chloride 107 Carbon Dioxide 22 Anion Gap 13 BUN 27 H Creatinine 0.70 Est GFR ( Amer) > 60 Est GFR (Non-Af Amer) > 60 Glucose 136 H Calcium 8.6 Total Bilirubin 0.4 AST 30 ALT 27 Alkaline Phosphatase 81 Total Protein 5.9 L Albumin 3.5 12/05/16 12/05/16 19:16 23:29 Urine Ketones TRACE H Ur Leukocyte Esterase MODERATE H Urine WBC (Auto) 18 C. difficile Tox (PCR) NEGATIVE 12/05/16 23:29 - Preliminary Stool - Stool Stool Culture - Pending 12/05/16 19:16 Urine Culture - Preliminary Clean Catch Midstream NO GROWTH IN 1 DAY Impressions: Abdomen/Pelvis CT 12/05/16 20:13 IMPRESSION: No evidence for bowel obstruction. NO ACUTE FINDING IN THE ABDOMEN OR PELVIS ON CT SCAN WITH IV CONTRAST. Assessment & Plan - Diagnosis (1) Dehydration Is this a current diagnosis for this admission?: YesPlan: Continue IV fluids (2) Diabetes Qualifiers: Diabetes mellitus type: type 2 Diabetes mellitus complication status: with unspecified complications Diabetes mellitus [facility] insulin use: without [facility] use Qualified Code(s): E11.8 - Type 2 diabetes mellitus with unspecified complications Is this a current diagnosis for this admission?: YesPlan: We'll hold metformin Accu-Chek before meals at bedtime and lispro coverage (3) Gastroenteritis Is this a current diagnosis for this admission?: YesPlan: Continue Flagyl for now Continue hydration Clear liquids by mouth Reevaluate in a.m. - Time Time Spent with patient: 25-34 minutes
[2016-12-06 12:00] LABS: PATH REVIEW PATHOLOGIST REVIEWED
[2016-12-06] MEDS ORDERED: NORMAL SALINE 1000 ML 1,000 ML IV PRN (17:26)
[2016-12-06] MEDS ORDERED: ENOXAPARIN SODIUM INJ 80 MG/0.8 ML DISP.SYRIN SUBCUT ONE (19:00)
[2016-12-06] MEDS ORDERED: BISMUTH SUBSALICYLATE 262 MG TAB.CHEW PO PRN ×2 (19:13→19:47)
[2016-12-06] MEDS ORDERED: ASPIRIN 81 MG TABLET, ENT COATED PO ONE (19:30)
[2016-12-06] MEDS ORDERED: LACTOBACILLUS ACIDOPHILUS 250 MG TAB PO ONE (20:00)
--- NOTE | 2016-12-06 22:00 | EKG REPORT ---
SEVERITY:- BORDERLINE ECG - SINUS RHYTHM BORDERLINE LEFT AXIS DEVIATION BORDERLINE T ABNORMALITIES, ANTERIOR LEADS : Confirmed by: Ann-Marie Kramer 06-Dec-2016 22:00:27
[2016-12-06] MEDS: CEFTRIAXONE 1 GM/D5W RTU 1 GM/50 ML RTUPB IV SCH (23:04)
[2016-12-07] MEDS: ENOXAPARIN SODIUM INJ 80 MG/0.8 ML DISP.SYRIN SUBCUT SCH ×2 (05:41→18:55)
[2016-12-07] MEDS: METRONIDAZOLE 500 MG TABLET PO SCH ×2 (05:42→12:37)
[2016-12-07] MEDS: LEVOTHYROXINE SODIUM 0.05 MG TABLET PO SCH (05:42)
--- NOTE | 2016-12-07 12:35 | EKG REPORT ---
SEVERITY:- OTHERWISE NORMAL ECG - SINUS RHYTHM BORDERLINE LEFT AXIS DEVIATION : Confirmed by: Ann-Marie Kramer 07-Dec-2016 12:35:22
[2016-12-07] MEDS: LACTOBACILLUS ACIDOPHILUS 250 MG TAB PO SCH ×2 (12:36→18:55)
[2016-12-07] MEDS: FOLIC ACID 1 MG TABLET PO SCH (12:37)
[2016-12-07] MEDS: ASPIRIN 81 MG TABLET, ENT COATED PO SCH (12:37)
--- NOTE | 2016-12-07 15:37 | PDOC PROGRESS REPORT ---
Subjective Progress Note for:: 12/07/16 Subjective:: Patient has no complaints today Diarrhea has improved , almost resolved no chest pain no SOB lung scan was intermediate risk for PE and chest CTA was ordered troponins are positive but in downward trend Patient is still anticoagulated on Lovenox Physical Exam Vital Signs: Temp Pulse Resp BP Pulse Ox 97.9 F 74 16 126/44 H 100 12/07/16 08:05 12/07/16 08:05 12/07/16 08:05 12/07/16 08:05 12/07/16 08:05 Intake & Output 12/06/16 12/07/16 12/08/16 00:59 00:59 00:59 Intake Total 2282 Balance 2282 Weight 88.3 kg General appearance: PRESENT: no acute distress, well-developed, well-nourished Head exam: PRESENT: atraumatic, normocephalic Eye exam: PRESENT: conjunctiva pink, EOMI, PERRLA. ABSENT: scleral icterus Ear exam: PRESENT: normal external ear exam Mouth exam: PRESENT: moist, tongue midline Neck exam: ABSENT: carotid bruit, JVD, lymphadenopathy, thyromegaly Respiratory exam: PRESENT: clear to auscultation italo. ABSENT: rales, rhonchi, wheezes Cardiovascular exam: PRESENT: RRR. ABSENT: diastolic murmur, rubs, systolic murmur Pulses: PRESENT: normal dorsalis pedis pul Vascular exam: PRESENT: normal capillary refill GI/Abdominal exam: PRESENT: normal bowel sounds, soft. ABSENT: distended, guarding, mass, organolmegaly, rebound, tenderness Rectal exam: PRESENT: deferred Extremities exam: PRESENT: full ROM. ABSENT: calf tenderness, clubbing, pedal edema Neurological exam: PRESENT: alert, awake, oriented to person, oriented to place , oriented to time, oriented to situation, CN II-XII grossly intact. ABSENT: motor sensory deficit Psychiatric exam: PRESENT: appropriate affect, normal mood. ABSENT: homicidal ideation, suicidal ideation Skin exam: PRESENT: dry, intact, warm. ABSENT: cyanosis, rash Results Laboratory Results: 12/06/16 12/06/16 12/07/16 17:48 23:40 05:45 Troponin I 0.229 0.429 0.391 Impressions: Abdomen/Pelvis CT 12/05/16 20:13 IMPRESSION: No evidence for bowel obstruction. NO ACUTE FINDING IN THE ABDOMEN OR PELVIS ON CT SCAN WITH IV CONTRAST. Chest X-Ray 12/06/16 00:00 IMPRESSION: NO ACUTE CARDIOPULMONARY PROCESS. NO SIGNIFICANT CHANGE FROM PRIOR STUDY Lung Scan-VQ NM 12/06/16 19:12 IMPRESSION: INDETERMINATE FOR PULMONARY EMBOLUS. LARGE WEDGE-SHAPED DEFECT INVOLVING THE ANTERIOR BASAL SEGMENTS LEFT LOWER LOBE AND LINGULA WHICH ME BE SECONDARY TO PATIENT'S CARDIOMEGALY HOWEVER UNABLE TO CONFIRM PATIENT WAS UNABLE TO TOLERATE VENTILATION THIS PROJECTION. 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 use Qualified Code(s): E11.8 - Type 2 diabetes mellitus with unspecified complications; Z79.4 - skilled nursing (current) use of insulin Is this a current diagnosis for this admission?: Yes (3) Gastroenteritis Is this a current diagnosis for this admission?: Yes (4) Chest pain Qualifiers: Chest pain type: unspecified Qualified Code(s): R07.9 - Chest pain, unspecified Is this a current diagnosis for this admission?: Yes (5) Elevated troponin Is this a current diagnosis for this admission?: YesPlan: may be secondary to PE or acute nonSTEMI CTA chest pending continue ASA, lovenox Patient is intolerant to lipitor - Time Time Spent with patient: 25-34 minutes
[2016-12-07] MEDS: CEFTRIAXONE 1 GM/D5W RTU 1 GM/50 ML RTUPB IV SCH (21:51)
[2016-12-08] MEDS: LEVOTHYROXINE SODIUM 0.05 MG TABLET PO SCH (06:44)
[2016-12-08] MEDS: ENOXAPARIN SODIUM INJ 80 MG/0.8 ML DISP.SYRIN SUBCUT SCH ×2 (06:44→18:56)
[2016-12-08] MEDS: ASPIRIN 81 MG TABLET, ENT COATED PO SCH (09:47)
[2016-12-08] MEDS: LACTOBACILLUS ACIDOPHILUS 250 MG TAB PO SCH ×2 (09:47→18:56)
[2016-12-08] MEDS: FOLIC ACID 1 MG TABLET PO SCH (09:47)
--- NOTE | 2016-12-08 14:12 | PDOC PROGRESS REPORT ---
Subjective Progress Note for:: 12/08/16 Subjective:: feeling better no chest pain or SOB CTA performed was negative for PE Physical Exam Vital Signs: Temp Pulse Resp BP Pulse Ox 97.6 F 77 17 146/59 H 100 12/08/16 08:03 12/08/16 08:03 12/08/16 08:03 12/08/16 08:03 12/08/16 08:03 Intake & Output 12/07/16 12/08/16 12/09/16 00:59 00:59 00:59 Intake Total 2282 2488 Balance 2282 2488 Weight 88.3 kg 88.3 kg General appearance: PRESENT: no acute distress, well-developed, well-nourished Head exam: PRESENT: atraumatic, normocephalic Eye exam: PRESENT: conjunctiva pink, EOMI, PERRLA. ABSENT: scleral icterus Ear exam: PRESENT: normal external ear exam Mouth exam: PRESENT: moist, tongue midline Neck exam: ABSENT: carotid bruit, JVD, lymphadenopathy, thyromegaly Respiratory exam: PRESENT: clear to auscultation italo. ABSENT: rales, rhonchi, wheezes Cardiovascular exam: PRESENT: RRR. ABSENT: diastolic murmur, rubs, systolic murmur Pulses: PRESENT: normal dorsalis pedis pul Vascular exam: PRESENT: normal capillary refill GI/Abdominal exam: PRESENT: normal bowel sounds, soft. ABSENT: distended, guarding, mass, organolmegaly, rebound, tenderness Rectal exam: PRESENT: deferred Extremities exam: PRESENT: full ROM. ABSENT: calf tenderness, clubbing, pedal edema Neurological exam: PRESENT: alert, awake, oriented to person, oriented to place , oriented to time, oriented to situation, CN II-XII grossly intact. ABSENT: motor sensory deficit Psychiatric exam: PRESENT: appropriate affect, normal mood. ABSENT: homicidal ideation, suicidal ideation Skin exam: PRESENT: dry, intact, warm. ABSENT: cyanosis, rash Results Laboratory Results: 12/06/16 12/06/16 12/07/16 17:48 23:40 05:45 Troponin I 0.229 0.429 0.391 Impressions: Abdomen/Pelvis CT 12/05/16 20:13 IMPRESSION: No evidence for bowel obstruction. NO ACUTE FINDING IN THE ABDOMEN OR PELVIS ON CT SCAN WITH IV CONTRAST. Chest X-Ray 12/06/16 00:00 IMPRESSION: NO ACUTE CARDIOPULMONARY PROCESS. NO SIGNIFICANT CHANGE FROM PRIOR STUDY Lung Scan-VQ NM 12/06/16 19:12 IMPRESSION: INDETERMINATE FOR PULMONARY EMBOLUS. LARGE WEDGE-SHAPED DEFECT INVOLVING THE ANTERIOR BASAL SEGMENTS LEFT LOWER LOBE AND LINGULA WHICH ME BE SECONDARY TO PATIENT'S CARDIOMEGALY HOWEVER UNABLE TO CONFIRM PATIENT WAS UNABLE TO TOLERATE VENTILATION THIS PROJECTION. Chest/Abdomen CTA 12/08/16 11:18 IMPRESSION: Small bilateral pleural effusions. NO PULMONARY EMBOLI. 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 use Qualified Code(s): E11.8 - Type 2 diabetes mellitus with unspecified complications; Z79.4 - manager intermediate (current) use of insulin Is this a current diagnosis for this admission?: Yes (3) Gastroenteritis Is this a current diagnosis for this admission?: YesPlan: resolving (4) Chest pain Qualifiers: Chest pain type: chest pain due to myocardial ischemia Is this a current diagnosis for this admission?: YesPlan: did not reccur secondary to acute NONSTEMI continue lovenox , metoprolol, ASA start imdur as BP permits now Patient is intolerant to lipitor (5) Elevated troponin Is this a current diagnosis for this admission?: Yes - Time Time Spent with patient: will repeat labs in am d/c in am if stable
[2016-12-08] MEDS: CEFTRIAXONE 1 GM/D5W RTU 1 GM/50 ML RTUPB IV SCH (22:19)
[2016-12-09] MEDS: ACETAMINOPHEN 325 MG TABLET PO PRN (00:17)
[2016-12-09 04:48] LABS: HEMATOCRIT 30.2 % (36.0-47.0); HEMOGLOBIN 10.3 g/dL (12.0-15.5); HGB HCT DIFFERENCE 0.7; MEAN CORPUSCULAR HEMOGLOBIN 30.6 pg (27.0-33.4); MEAN CORPUSCULAR HGB CONC 34.2 g/dL (32.0-36.0); MEAN CORPUSCULAR VOLUME 89 fl (80-97); RED BLOOD COUNT 3.38 10^6/uL (3.72-5.28); RED CELL DISTRIBUTION WIDTH 13.7 % (11.5-14.0); WHITE BLOOD COUNT 7.8 10^3/uL (4.0-10.5)
[2016-12-09] MEDS: ENOXAPARIN SODIUM INJ 80 MG/0.8 ML DISP.SYRIN SUBCUT SCH (06:25)
[2016-12-09] MEDS: LEVOTHYROXINE SODIUM 0.05 MG TABLET PO SCH (06:25)
[2016-12-09] MEDS: LACTOBACILLUS ACIDOPHILUS 250 MG TAB PO SCH ×2 (12:09→18:02)
[2016-12-09] MEDS: ASPIRIN 81 MG TABLET, ENT COATED PO SCH (12:10)
[2016-12-09] MEDS: FOLIC ACID 1 MG TABLET PO SCH (12:11)
[2016-12-09] MEDS: HYDROCHLOROTHIAZIDE 25 MG TABLET PO SCH (12:11)
[2016-12-09] MEDS: METOPROLOL TARTRATE 50 MG TABLET PO SCH ×2 (12:11→21:39)
[2016-12-09] MEDS: ISOSORBIDE MONONITRATE 30 MG TAB.ER.24H PO SCH (12:11)
[2016-12-09] MEDS ORDERED: OXYCODONE HCL IR 5 MG TABLET PO PRN (14:21)
--- NOTE | 2016-12-09 14:25 | PDOC PROGRESS REPORT ---
Subjective Progress Note for:: 12/09/16 Subjective:: Patient is doing very well unfortunately she sprained her right knee and is unable to stand An x-ray was done this afternoon We had to cancel the Discharge Today She has had no more chest pains, troponins were in the downward range CT of the chest was negative for PE We discontinued Lovenox Physical Exam Vital Signs: Temp Pulse Resp BP Pulse Ox 97.9 F 76 18 137/51 H 99 12/09/16 12:00 12/09/16 12:00 12/09/16 12:00 12/09/16 12:00 12/09/16 12:00 Intake & Output 12/08/16 12/09/16 12/10/16 00:59 00:59 00:59 Intake Total 2488 1607 Balance 2488 1607 Weight 88.3 kg 88.3 kg General appearance: PRESENT: no acute distress, well-developed, well-nourished Head exam: PRESENT: atraumatic, normocephalic Eye exam: PRESENT: conjunctiva pink, EOMI, PERRLA. ABSENT: scleral icterus Ear exam: PRESENT: normal external ear exam Mouth exam: PRESENT: moist, tongue midline Neck exam: ABSENT: carotid bruit, JVD, lymphadenopathy, thyromegaly Respiratory exam: PRESENT: clear to auscultation italo. ABSENT: rales, rhonchi, wheezes Cardiovascular exam: PRESENT: RRR. ABSENT: diastolic murmur, rubs, systolic murmur Pulses: PRESENT: normal dorsalis pedis pul Vascular exam: PRESENT: normal capillary refill GI/Abdominal exam: PRESENT: normal bowel sounds, soft. ABSENT: distended, guarding, mass, organolmegaly, rebound, tenderness Rectal exam: PRESENT: deferred Extremities exam: PRESENT: full ROM. ABSENT: calf tenderness, clubbing, pedal edema Neurological exam: PRESENT: alert, awake, oriented to person, oriented to place , oriented to time, oriented to situation, CN II-XII grossly intact. ABSENT: motor sensory deficit Psychiatric exam: PRESENT: appropriate affect, normal mood. ABSENT: homicidal ideation, suicidal ideation Skin exam: PRESENT: dry, intact, warm. ABSENT: cyanosis, rash Results Laboratory Results: 12/09/16 04:00 12/09/16 04:00 WBC 7.8 RBC 3.38 L Hgb 10.3 L Hct 30.2 L MCV 89 MCH 30.6 MCHC 34.2 RDW 13.7 Plt Count 167 12/06/16 12/06/16 12/07/16 17:48 23:40 05:45 Troponin I 0.229 0.429 0.391 Impressions: Abdomen/Pelvis CT 12/05/16 20:13 IMPRESSION: No evidence for bowel obstruction. NO ACUTE FINDING IN THE ABDOMEN OR PELVIS ON CT SCAN WITH IV CONTRAST. Chest X-Ray 12/06/16 00:00 IMPRESSION: NO ACUTE CARDIOPULMONARY PROCESS. NO SIGNIFICANT CHANGE FROM PRIOR STUDY Lung Scan-VQ NM 12/06/16 19:12 IMPRESSION: INDETERMINATE FOR PULMONARY EMBOLUS. LARGE WEDGE-SHAPED DEFECT INVOLVING THE ANTERIOR BASAL SEGMENTS LEFT LOWER LOBE AND LINGULA WHICH ME BE SECONDARY TO PATIENT'S CARDIOMEGALY HOWEVER UNABLE TO CONFIRM PATIENT WAS UNABLE TO TOLERATE VENTILATION THIS PROJECTION. Chest/Abdomen CTA 12/08/16 11:18 IMPRESSION: Small bilateral pleural effusions. NO PULMONARY EMBOLI. Assessment & Plan - Diagnosis (1) Dehydration Is this a current diagnosis for this admission?: Yes (2) Diabetes Qualifiers: Diabetes mellitus type: type 2 Diabetes mellitus complication status: with unspecified complications Diabetes mellitus jail insulin use: without jail use Qualified Code(s): E11.8 - Type 2 diabetes mellitus with unspecified complications; Z79.4 - longterm (current) use of insulin Is this a current diagnosis for this admission?: Yes (3) Gastroenteritis Is this a current diagnosis for this admission?: YesPlan: is resolving Diarrhea is improved (4) Chest pain Qualifiers: Chest pain type: chest pain due to myocardial ischemia Is this a current diagnosis for this admission?: YesPlan: Patient had a non-STEMI with elevated troponins Daughter elected to treat in a conservative way and does not wish intervention We have anticoagulated the patient for 2 days; patient is intolerant to Lipitor ; Imdur was prescribed as well as Ecotrin 325 mg We will DC Ecotrin now and replace it with Plavix 75 mg daily Continue Imdur Continue beta blockers Start ramipril 2.5 mg daily (5) Elevated troponin Is this a current diagnosis for this admission?: YesPlan: As above Now in the downward trend (6) Urinary tract infection Qualifiers: Urinary tract infection type: acute cystitis Hematuria presence: without hematuria Qualified Code(s): N30.00 - Acute cystitis without hematuria Is this a current diagnosis for this admission?: YesPlan: 12/05/16 19:16 Urine Culture - Final Clean Catch Midstream Proteus Mirabilis Patient has been treated with ceftriaxone for 3 days We will switch her to Vantin 200 mg twice a day Noted that she is allergic to penicillin but had no problem with ceftriaxone (7) Knee pain Is this a current diagnosis for this admission?: YesPlan: X-ray pending Ice pack Knee immobilizer Reevaluate in a.m. with physical therapy patient can ambulate
--- NOTE | 2016-12-09 21:00 | XCELERA REPORT ---
[address] [address] Transthoracic Echocardiogram Report Name: JUAN BRANTLEY Age: 86 yrs Gender: Female : 1930 Patient Status: Inpatient Patient Location: [id number] Study Date: 12/09/2016 04:09 PM Height: 62 in Weight: 194 lb BSA: 1.9 m2 Procedure: A complete two-dimensional transthoracic echocardiogram was performed (2D, M-mode, spectral and color flow Doppler). The study was technically difficult with many images being suboptimal in quality. Reason For Study: chest pain Ordering Physician: CHIDI GRUBER Performed By: Tarvis Noel Interpretation Summary The left ventricular ejection fraction is normal. LV diastolic function could not be adequately assessed. There is mild concentric left ventricular hypertrophy. The left ventricle is grossly normal size. Wall motion cannot be accurately commented on, but no definite regional wall motion abnormalities noted. The right ventricular systolic function is normal. The left atrium is moderately dilated. The right atrium is normal in size There is a mild to moderate amount of mitral regurgitation There is no mitral valve stenosis. There is moderate to severe aortic stenosis There is a peak gradient of 64 mm of Hg. There is a mild amount of aortic regurgitation There is a mild amount of tricuspid regurgitation There is moderate pulmonary hypertension by echo Right ventricular systolic pressure is estimated to be elevated at 50- 60mmHg. There is no pericardial effusion. MMode/2D Measurements \T\ Calculations RVDd: 2.4 cm LVIDd: 5.5 cm FS: 30.1 % Ao root diam: IVSd: 1.2 cm LVIDs: 3.8 cm EDV(Teich): 2.8 cm LVPWd: 1.1 cm 146.7 ml Ao root area: ESV(Teich): 63.4 ml 6.0 cm2 EF(Teich): LA dimension: 56.8 % 4.7 cm LVOT diam: 2.1 cm LA A2Cs: LA A4Cs: LA length: 6.6 cm LVOT area: 3.5 cm2 25.2 cm2 31.0 cm2 LA Vol Index (BP): LA Volume: 101.1 ml 53.6 ml/m2 Doppler Measurements \T\ Calculations MV E max himanshu: MV P1/2t max himanshu: Ao V2 max: AI max himanshu: 132.3 cm/sec 131.8 cm/sec 397.6 cm/sec 365.6 cm/sec MV A max himanshu: MV P1/2t: 44.1 msec Ao max PG: AI max P.0 cm/sec MVA(P1/2t): 5.0 cm2 63.2 mmHg 53.6 mmHg MV E/A: 1.1 MV dec slope: Ao V2 mean: AI dec slope: 290.4 cm/sec 276.3 cm/sec2 874.5 cm/sec2 Ao mean PG: AI P1/2t: 36.7 mmHg 387.5 msec Ao V2 VTI: 103.3 cm PIERRE(I,D): 0.96 cm2 PIERRE(V,D): 0.98 cm2 LV V1 max PG: SV(LVOT): 99.5 ml PA V2 max: PI end-d himanshu: 4.8 mmHg 96.7 cm/sec 109.9 cm/sec LV V1 mean PG: PA max P.0 mmHg 3.7 mmHg LV V1 max: 109.5 cm/sec LV V1 mean: 64.3 cm/sec LV V1 VTI: 28.1 cm TR max himanshu: RAP systole: 305.4 cm/sec 10.0 mmHg TR max P.4 mmHg RVSP(TR): 47.4 mmHg Left Ventricle The left ventricle is grossly normal size. There is mild concentric left ventricular hypertrophy. The left ventricular ejection fraction is normal. LV diastolic function could not be adequately assessed. Wall motion cannot be accurately commented on, but no definite regional wall motion abnormalities noted. Right Ventricle The right ventricle is grossly normal size. There is normal right ventricular wall thickness. The right ventricular systolic function is normal. Atria The right atrium is normal in size. The left atrium is moderately dilated. Interarterial septum not well visualized and not well dopplered. Cannot comment on ASD/PFO presence. Mitral Valve There is mild mitral leaflet calcification. There is mild to moderate mitral annular calcification. There is no mitral valve stenosis. There is a mild to moderate amount of mitral regurgitation. Aortic Valve The aortic valve is moderately calcified. There is moderate to severe aortic stenosis. There is a peak gradient of 64 mm of Hg. There is a mild amount of aortic regurgitation. Tricuspid Valve The tricuspid valve is not well visualized secondary to technical limitations. There is no tricuspid stenosis. There is a mild amount of tricuspid regurgitation. There is moderate pulmonary hypertension by echo. Right ventricular systolic pressure is estimated to be elevated at 50- 60mmHg. Pulmonic Valve The pulmonic valve is not well visualized. Great Vessels The aortic root is not well visualized. The inferior vena cava appeared dilated and decreased < 50% with respiration (RAP 15-20 mmHg). Effusions There is no pericardial effusion. : CHIDI GRUBER > Ann-Marie Kramer
[2016-12-09] MEDS: CEFPODOXIME 200 MG TABLET PO SCH (21:39)
[2016-12-10 04:42] LABS: ABSOLUTE EOSINOPHILS # (AUTO) 0.2 10^3/uL (0.0-0.6); ABSOLUTE MONOCYTES (AUTO) 0.8 10^3/uL (0.1-1.4); ABSOLUTE NEUT (AUTO) 6.1 10^3/uL (1.7-8.2); BASOPHILS % (AUTO) 0.5 % (0-2); EOSINOPHILS % (AUTO) 2.4 % (0-6); HEMATOCRIT 30.4 % (36.0-47.0); HEMOGLOBIN 10.4 g/dL (12.0-15.5); HGB HCT DIFFERENCE 0.8; LYMPHOCYTES % (AUTO) 12.7 % (13-45); MEAN CORPUSCULAR HEMOGLOBIN 30.4 pg (27.0-33.4); MEAN CORPUSCULAR HGB CONC 34.3 g/dL (32.0-36.0); MEAN CORPUSCULAR VOLUME 89 fl (80-97); MONOCYTES % (AUTO) 9.9 % (3-13); RED BLOOD COUNT 3.42 10^6/uL (3.72-5.28); RED CELL DISTRIBUTION WIDTH 13.6 % (11.5-14.0); SEGMENTED NEUTROPHILS % (AUTO) 74.5 % (42-78); WHITE BLOOD COUNT 8.2 10^3/uL (4.0-10.5)
[2016-12-10 05:01] LABS: ANION GAP 13 (5-19); BLOOD UREA NITROGEN 10 mg/dL (7-20); CALCIUM 8.1 mg/dL (8.4-10.2); CARBON DIOXIDE 18 mmol/L (22-30); CHLORIDE 109 mmol/L (98-107); CREATININE RESULT 0.62 mg/dL (0.52-1.25); GLUCOSE 81 mg/dL (75-110); POTASSIUM 3.1 mmol/L (3.6-5.0); SODIUM 139.5 mmol/L (137-145)
[2016-12-10] MEDS: LEVOTHYROXINE SODIUM 0.05 MG TABLET PO SCH (05:39)
[2016-12-10] MEDS ORDERED: ASPIRIN 81 MG TABLET, ENT COATED PO SCH (10:00)
[2016-12-10] MEDS: CEFPODOXIME 200 MG TABLET PO SCH ×2 (10:05→21:57)
[2016-12-10] MEDS: ISOSORBIDE MONONITRATE 30 MG TAB.ER.24H PO SCH (10:05)
[2016-12-10] MEDS: FOLIC ACID 1 MG TABLET PO SCH (10:05)
[2016-12-10] MEDS: RAMIPRIL 2.5 MG CAPSULE PO SCH (10:07)
[2016-12-10] MEDS: CLOPIDOGREL BISULFATE 75 MG TABLET PO SCH (10:08)
[2016-12-10] MEDS: METOPROLOL TARTRATE 50 MG TABLET PO SCH ×2 (10:09→21:57)
[2016-12-10] MEDS: LACTOBACILLUS ACIDOPHILUS 250 MG TAB PO SCH ×2 (10:09→17:36)
[2016-12-10] MEDS: POTASSIUM CHLORIDE 10 MEQ TABLET.SA PO SCH ×2 (14:29→21:57)
--- NOTE | 2016-12-10 17:09 | PDOC PROGRESS REPORT ---
Subjective Progress Note for:: 12/10/16 Subjective:: Reason for visit: UTI, and NSTEMI, diabetes, knee pain Hospital course: Per H&P "JUAN BRANTLEY is a 86 year old female with a past medical history of diabetes, dyslipidemia, coronary artery disease, CVA, hypertension and diverticular disease who had been her usual state of health until approximately 12 hours prior to presentation. She admits approximately 8 episodes of vomiting gastric content following her a.m. meal once in the emergency room she developed severe diarrhea. She admits to suspect meal the night before, denies new medication, significant constipation or fever. In the emergency room she's found to have leukocytosis and intractable nausea vomiting diarrhea and referred to the hospitalist for admission. Patient is extremely weak and nauseous. The next day She does not have any vomiting, but diarrhea still persistent watery quite profuse; No blood no mucus, C. difficile toxin was negative. CT abdomen and pelvis was unremarkable her daughter at the bedside had similar symptoms in the last 24 hoursPatient has no complaints today. and the next day, Diarrhea has improved , almost resolved; no chest pain no SOB lung scan was intermediate risk for PE and chest CTA was ordered, troponins are positive but in downward trend; Patient is still anticoagulated on Lovenox." I inherited her care this morning, her only complaint to me is that her knee still hurts and she wants a wart injection as she has had in the past. She denies chest pain, palpitations, headache, dizziness, repetitions, nausea, vomiting, diarrhea. At this point she even denies dysuric symptoms. Of note her urine culture is positive for Proteus, stool studies have been negative. Echocardiogram was performed during this hospitalization and shows a normal EF with left atrial enlargement, moderate mitral regurgitation, moderate to severe aortic stenosis with a calculated valve area of 0.96 cm, mild TR, mild pulmonary hypertension. ROS: per HPI plus a total of 10 systems reviewed, pertinent positives and negatives noted above, remaining systems negative. Physical Exam Vital Signs: Temp Pulse Resp BP Pulse Ox 97.7 F 73 20 126/45 H 97 12/10/16 15:01 12/10/16 15:01 12/10/16 15:01 12/10/16 15:01 12/10/16 15:01 Intake & Output 12/09/16 12/10/16 12/11/16 06:59 06:59 06:59 Intake Total 1607 3060 870 Output Total 950 Balance 1607 2110 870 Weight 98.1 kg EXAM GENERAL: NAD; well developed, well nourished; moderate obese; alert and oriented to person, place, time, situation HEENT: normocephalic, atraumatic; no conjunctival injection, no scleral icterus ; oral mucosa moist; supplemental O2 at 1.5 L/m RESPIRATORY: no accessory muscle use, no increased WOB, good air entry bilaterally; no wheezes, rales, rhonchi; bibasilar inspiratory crackles CARDIO: no JVD; RRR; sharp crescendo-decrescendo high-pitched systolic murmur; no tachycardia; sinus rhythm on the monitor GI: soft; nondistended; normal bowel sounds; no rebound, rigidity, guarding; nontender VASCULAR: no abdominal bruit; no pallor; 2+ radial; normal capillary refill EXTREMITIES: no calf tender; no palpable cords in calf; no clubbing, cyanosis ; trace pedal edema; right knee with crepitus, small effusion, pain with passive and active range of motion, no overlying erythema or heat, no bruising or rash PSYCH: normal affect, normal mood SKIN: warm; moist; no petechiae; no telengectasias; no jaundice; no rash Results Laboratory Results: 12/10/16 03:38 12/10/16 03:38 12/10/16 12/10/16 03:38 03:38 WBC 8.2 RBC 3.42 L Hgb 10.4 L Hct 30.4 L MCV 89 MCH 30.4 MCHC 34.3 RDW 13.6 Plt Count 182 Seg Neutrophils % 74.5 Lymphocytes % 12.7 L Monocytes % 9.9 Eosinophils % 2.4 Basophils % 0.5 Absolute Neutrophils 6.1 Absolute Lymphocytes 1.0 Absolute Monocytes 0.8 Absolute Eosinophils 0.2 Absolute Basophils 0.0 Sodium 139.5 Potassium 3.1 L Chloride 109 H Carbon Dioxide 18 L Anion Gap 13 BUN 10 Creatinine 0.62 Est GFR ( Amer) > 60 Est GFR (Non-Af Amer) > 60 Glucose 81 Calcium 8.1 L 12/06/16 12/06/16 12/07/16 17:48 23:40 05:45 Troponin I 0.229 0.429 0.391 Impressions: Abdomen/Pelvis CT 12/05/16 20:13 IMPRESSION: No evidence for bowel obstruction. NO ACUTE FINDING IN THE ABDOMEN OR PELVIS ON CT SCAN WITH IV CONTRAST. Chest X-Ray 12/06/16 00:00 IMPRESSION: NO ACUTE CARDIOPULMONARY PROCESS. NO SIGNIFICANT CHANGE FROM PRIOR STUDY Lung Scan-VQ NM 12/06/16 19:12 IMPRESSION: INDETERMINATE FOR PULMONARY EMBOLUS. LARGE WEDGE-SHAPED DEFECT INVOLVING THE ANTERIOR BASAL SEGMENTS LEFT LOWER LOBE AND LINGULA WHICH ME BE SECONDARY TO PATIENT'S CARDIOMEGALY HOWEVER UNABLE TO CONFIRM PATIENT WAS UNABLE TO TOLERATE VENTILATION THIS PROJECTION. Chest/Abdomen CTA 12/08/16 11:18 IMPRESSION: Small bilateral pleural effusions. NO PULMONARY EMBOLI. Knee X-Ray 12/09/16 14:06 IMPRESSION: No acute fractures identified. Mild arthritic change. Assessment & Plan - Diagnosis (1) Urinary tract infection Qualifiers: Urinary tract infection type: acute cystitis Hematuria presence: without hematuria Qualified Code(s): N30.00 - Acute cystitis without hematuria Is this a current diagnosis for this admission?: YesPlan: Improved. Cerda-sensitive Proteus mirabilis covered with current antibiotics (2) NSTEMI (non-ST elevated myocardial infarction) Is this a current diagnosis for this admission?: YesPlan: Stable. Chest pain-free. Patient and daughter requesting medical management only. Continue Plavix, metoprolol, RAGHAV inhibitor, Imdur and hold statin therapy due to allergies. (3) Diabetes 1.5, managed as type 2 Is this a current diagnosis for this admission?: YesPlan: Blood sugars well controlled. Continue sliding scale insulin. (4) Knee pain Qualifiers: Laterality: right Chronicity: acute Qualified Code(s): M25.561 - Pain in right knee Is this a current diagnosis for this admission?: YesPlan: Acute on chronic arthritic pain. Steroids and steroid injections relatively contraindicated due to the acute infection under treatment. Consider course of nonsteroidal anti-inflammatory medication. Continue physical therapy. (5) Hypokalemia Is this a current diagnosis for this admission?: YesPlan: Low this morning, replace and monitor. - Time Time Spent with patient: 15-24 minutes
[2016-12-11 04:19] LABS: HEMATOCRIT 31.2 % (36.0-47.0); HEMOGLOBIN 10.6 g/dL (12.0-15.5); HGB HCT DIFFERENCE 0.6; MEAN CORPUSCULAR HEMOGLOBIN 30.3 pg (27.0-33.4); MEAN CORPUSCULAR HGB CONC 34.1 g/dL (32.0-36.0); MEAN CORPUSCULAR VOLUME 89 fl (80-97); RED BLOOD COUNT 3.51 10^6/uL (3.72-5.28); RED CELL DISTRIBUTION WIDTH 13.6 % (11.5-14.0); WHITE BLOOD COUNT 8.4 10^3/uL (4.0-10.5)
[2016-12-11 04:39] LABS: ANION GAP 8 (5-19); BLOOD UREA NITROGEN 11 mg/dL (7-20); CALCIUM 8.4 mg/dL (8.4-10.2); CARBON DIOXIDE 22 mmol/L (22-30); CHLORIDE 109 mmol/L (98-107); CREATININE RESULT 0.63 mg/dL (0.52-1.25); GLUCOSE 97 mg/dL (75-110); POTASSIUM 3.9 mmol/L (3.6-5.0); SODIUM 138.5 mmol/L (137-145)
[2016-12-11] MEDS: LEVOTHYROXINE SODIUM 0.05 MG TABLET PO SCH (05:18)
--- NOTE | 2016-12-11 08:07 | PDOC PROGRESS REPORT ---
Subjective Progress Note for:: 12/11/16 Subjective:: The patient states to feel better. She denies any shortness of breath or chest pain. She denies any dysuria. Her only complaint is right knee pain and difficulty ambulating. Physical Exam Vital Signs: Temp Pulse Resp BP Pulse Ox 99.2 F 89 16 140/51 H 97 12/10/16 23:45 12/11/16 02:00 12/10/16 23:45 12/10/16 23:45 12/10/16 23:45 Intake & Output 12/10/16 12/11/16 12/12/16 06:59 06:59 06:59 Intake Total 3060 1585 Output Total 950 Balance 2110 1585 Weight 98.1 kg 97.8 kg General appearance: PRESENT: mild distress Head exam: PRESENT: atraumatic Eye exam: PRESENT: conjunctiva pink Neck exam: ABSENT: carotid bruit Respiratory exam: PRESENT: clear to auscultation italo Cardiovascular exam: PRESENT: RRR, +S1, +S2 Pulses: PRESENT: +1 pedal pulses bilateral Vascular exam: PRESENT: normal capillary refill GI/Abdominal exam: PRESENT: normal bowel sounds, soft Extremities exam: PRESENT: tenderness Musculoskeletal exam: PRESENT: tenderness Results Laboratory Results: 12/11/16 03:50 12/11/16 03:50 12/11/16 12/11/16 03:50 03:50 WBC 8.4 RBC 3.51 L Hgb 10.6 L Hct 31.2 L MCV 89 MCH 30.3 MCHC 34.1 RDW 13.6 Plt Count 180 Sodium 138.5 Potassium 3.9 Chloride 109 H Carbon Dioxide 22 Anion Gap 8 BUN 11 Creatinine 0.63 Est GFR ( Amer) > 60 Est GFR (Non-Af Amer) > 60 Glucose 97 Calcium 8.4 12/06/16 12/06/16 12/07/16 17:48 23:40 05:45 Troponin I 0.229 0.429 0.391 Impressions: Abdomen/Pelvis CT 12/05/16 20:13 IMPRESSION: No evidence for bowel obstruction. NO ACUTE FINDING IN THE ABDOMEN OR PELVIS ON CT SCAN WITH IV CONTRAST. Chest X-Ray 12/06/16 00:00 IMPRESSION: NO ACUTE CARDIOPULMONARY PROCESS. NO SIGNIFICANT CHANGE FROM PRIOR STUDY Lung Scan-VQ NM 12/06/16 19:12 IMPRESSION: INDETERMINATE FOR PULMONARY EMBOLUS. LARGE WEDGE-SHAPED DEFECT INVOLVING THE ANTERIOR BASAL SEGMENTS LEFT LOWER LOBE AND LINGULA WHICH ME BE SECONDARY TO PATIENT'S CARDIOMEGALY HOWEVER UNABLE TO CONFIRM PATIENT WAS UNABLE TO TOLERATE VENTILATION THIS PROJECTION. Chest/Abdomen CTA 12/08/16 11:18 IMPRESSION: Small bilateral pleural effusions. NO PULMONARY EMBOLI. Knee X-Ray 12/09/16 14:06 IMPRESSION: No acute fractures identified. Mild arthritic change. Assessment & Plan - Diagnosis (1) Knee pain Qualifiers: Laterality: right Chronicity: acute Qualified Code(s): M25.561 - Pain in right knee Is this a current diagnosis for this admission?: YesPlan: We will consult orthopedic for possible cortisone injection (2) Diabetes 1.5, managed as type 2 Is this a current diagnosis for this admission?: YesPlan: We will continue with insulin and oral medications (3) Chest pain Qualifiers: Chest pain type: chest pain due to myocardial ischemia Is this a current diagnosis for this admission?: YesPlan: Recent non STEMI. We will continue medical management (4) Diarrhea Qualifiers: Diarrhea type: infectious Qualified Code(s): A09 - Infectious gastroenteritis and colitis, unspecified Plan: Most probably secondary to food poisoning resolved (5) Urinary tract infection Qualifiers: Urinary tract infection type: acute cystitis Hematuria presence: without hematuria Qualified Code(s): N30.00 - Acute cystitis without hematuria Is this a current diagnosis for this admission?: YesPlan: Secondary to Proteus mirabilis. Has been on antibiotics for 5 days
[2016-12-11] MEDS ORDERED: BUPIVACAINE HCL 0.5 % INJ/PF 30 ML SDV INJ PRN (09:00)
[2016-12-11] MEDS: LACTOBACILLUS ACIDOPHILUS 250 MG TAB PO SCH ×2 (09:41→17:25)
[2016-12-11] MEDS: CEFPODOXIME 200 MG TABLET PO SCH ×2 (09:42→21:26)
[2016-12-11] MEDS: FOLIC ACID 1 MG TABLET PO SCH (09:43)
[2016-12-11] MEDS: RAMIPRIL 2.5 MG CAPSULE PO SCH (09:43)
[2016-12-11] MEDS: CLOPIDOGREL BISULFATE 75 MG TABLET PO SCH (09:44)
[2016-12-11] MEDS: ISOSORBIDE MONONITRATE 30 MG TAB.ER.24H PO SCH (09:44)
[2016-12-11] MEDS: METOPROLOL TARTRATE 50 MG TABLET PO SCH ×2 (09:45→21:26)
[2016-12-11] MEDS ORDERED: METHYLPREDNISOLONE ACETATE INJ 80 MG/1 ML VIAL INJ PRN (10:00)
[2016-12-11] MEDS: POTASSIUM CHLORIDE 10 MEQ TABLET.SA PO SCH ×2 (13:05→21:26)
--- NOTE | 2016-12-11 13:24 | PDOC CONSULTATION ---
Consultation Consult Date: 12/11/16 Attending physician:: PIETRO CASON Consult reason:: right knee pain History of Present Illness Admission Date/PCP: 12/06/16 16:33 PIETRO CASON, Patient complains of: patient's 86-year-old white female was admitted for urinary tract infection and as she began to be mobilized she is having increasing right knee pain which precludes functional evaluation also awakens her up at night. Past Medical History Cardiac Medical History: Reports: Atrial Fibrillation, Coronary Artery Disease, Myocardial Infarction - STATES TOLD HAD SILENT SC, Hypertension Pulmonary Medical History: Denies: Asthma, Bronchitis, Chronic Obstructive Pulmonary Disease (COPD), Pneumonia Neurological Medical History: Denies: Seizures Endocrine Medical History: Reports: Diabetes Mellitus Type 2 Musculoskeltal Medical History: Reports: Arthritis Hematology: Denies: Anemia, Sickle Cell Disease Past Surgical History Past Surgical History: Reports: Cholecystectomy, Hysterectomy, Orthopedic Surgery - L knee replacement, trigger finger, Tonsillectomy Denies: Amputation Social History Lives with: Alone Smoking Status: Never Smoker Frequency of Alcohol Use: None Drugs: None - Advance Directive Resuscitation Status: Full Code Family History Family History: Reviewed & Not Pertinent, Hypertension Parental Family History Reviewed: No Children Family History Reviewed: No Sibling(s) Family History Reviewed.: No Medication/Allergy Home Medications: Acetaminophen [Tylenol 325 mg Tablet] 650 mg PO Q8 12/06/16 Aspirin [Aspirin 81 mg Chewable Tablet] 81 mg PO DAILY 12/06/16 Docusate Sodium [Colace 100 mg Capsule] 100 mg PO DAILY 12/06/16 Ergocalciferol (Vitamin D2) [Drisdol 50,000 unit (1.25MG) Capsule] 50,000 unit PO CHEN 12/06/16 Folic Acid [Folvite 1 mg Tablet] 1 mg PO DAILY 12/06/16 Gluc Chen/Chondro Chen A/Vit C/Mn [Glucosamine Chondroitin Tab] 1 tab PO DAILY 12/06 Hydrochlorothiazide [Hydrodiuril 12.5 mg Capsule] 12.5 mg PO DAILY 12/06/16 Levothyroxine Sodium [Synthroid] 50 mcg PO DAILY 12/06/16 Lisinopril [Prinivil 10 mg Tablet] 10 mg PO DAILY 12/06/16 Metformin HCl [Glucophage] 500 mg PO QHS 12/06/16 Metoprolol Tartrate [Lopressor 50 mg Tablet] 50 mg PO BID 12/06/16 Multivitamin [One-A-Day Essential] 1 tab PO DAILY 12/06/16 Nitroglycerin [Nitro-Dur 10 mg (0.4MG/Hr) Transdermal Patch] 1 patch TOP DAILY 12/06/16 Nitroglycerin [Nitrostat] 1 tab SL Q5M 12/06/16 Vit C/E/Zn/Coppr/Lutein/Zeaxan [Preservision Areds 2 Softgel] 2 cap PO BID 12/06 Allergies/Adverse Reactions: amoxicillin trihydrate [From Augmentin] Allergy (Verified 07/23/16 16:32) atorvastatin calcium [From Lipitor] Allergy (Verified 07/23/16 16:32) bacitracin [From Neosporin] Allergy (Verified 07/23/16 16:32) calcitonin,salmon,synthetic [From Miacalcin] Allergy (Verified 07/23/16 16:32) celecoxib [From Celebrex] Allergy (Verified 07/23/16 16:32) ezetimibe [From Vytorin 10-10] Allergy (Verified 07/23/16 16:32) gramicidin D [From Neosporin] Allergy (Verified 07/23/16 16:32) irbesartan [From Avapro] Allergy (Verified 07/23/16 16:32) meloxicam [From Mobic] Allergy (Verified 07/23/16 16:32) morphine [Morphine] Allergy (Verified 07/23/16 16:32) moxifloxacin HCl [From Avelox] Allergy (Verified 07/23/16 16:32) neomycin sulfate [From Neosporin] Allergy (Verified 07/23/16 16:32) polymyxin B [From Neosporin] Allergy (Verified 07/23/16 16:32) rofecoxib [From Vioxx] Allergy (Verified 07/23/16 16:32) simvastatin [From Vytorin 10-10] Allergy (Verified 07/23/16 16:32) tetracycline [Tetracycline] Allergy (Verified 07/23/16 16:32) Review of Systems ROS unobtainable: Due to endotracheal tube All systems: as per PMH Physical Exam Vital Signs: Temp Pulse Resp BP Pulse Ox 36.6 C 82 14 139/64 H 98 12/11/16 12:00 12/11/16 12:00 12/11/16 12:00 12/11/16 12:00 12/11/16 12:00 Intake & Output 12/10/16 12/11/16 12/12/16 06:59 06:59 06:59 Intake Total 3060 1585 Output Total 950 Balance 2110 1585 Weight 98.1 kg 97.8 kg Physical Exam: the patient is somewhat overweight elderly white female sitting on the edge of her hospital bed. she is alert oriented and quite spry. General appearance: PRESENT: no acute distress Head exam: PRESENT: normocephalic Eye exam: PRESENT: EOMI Respiratory exam: PRESENT: unlabored Cardiovascular exam: PRESENT: RRR Pulses: PRESENT: +1 pedal pulses bilateral Vascular exam: PRESENT: normal capillary refill GI/Abdominal exam: PRESENT: soft Rectal exam: PRESENT: deferred Extremities exam: PRESENT: other - examination of the right knee reveals a mild varus alignment, modest effusion, and global tenderness to palpation. there is no ligamentous instability. other than venous varicosities is no skin abnormality. is a full passive range of motion. active range of motion associated with crepitus. distal neurovascular examination is intact. Neurological exam: PRESENT: alert, awake, oriented to person, oriented to place , oriented to time, oriented to situation, CN II-XII grossly intact. ABSENT: motor sensory deficit Psychiatric exam: PRESENT: appropriate affect, normal mood. ABSENT: homicidal ideation, suicidal ideation Skin exam: PRESENT: dry, intact, warm. ABSENT: cyanosis, rash Results Laboratory Results: 12/11/16 03:50 12/11/16 03:50 12/11/16 12/11/16 03:50 03:50 WBC 8.4 RBC 3.51 L Hgb 10.6 L Hct 31.2 L MCV 89 MCH 30.3 MCHC 34.1 RDW 13.6 Plt Count 180 Sodium 138.5 Potassium 3.9 Chloride 109 H Carbon Dioxide 22 Anion Gap 8 BUN 11 Creatinine 0.63 Est GFR ( Amer) > 60 Est GFR (Non-Af Amer) > 60 Glucose 97 Calcium 8.4 12/06/16 12/06/16 12/07/16 17:48 23:40 05:45 Troponin I 0.229 0.429 0.391 Impressions: Abdomen/Pelvis CT 12/05/16 20:13 IMPRESSION: No evidence for bowel obstruction. NO ACUTE FINDING IN THE ABDOMEN OR PELVIS ON CT SCAN WITH IV CONTRAST. Chest X-Ray 12/06/16 00:00 IMPRESSION: NO ACUTE CARDIOPULMONARY PROCESS. NO SIGNIFICANT CHANGE FROM PRIOR STUDY Lung Scan-VQ NM 12/06/16 19:12 IMPRESSION: INDETERMINATE FOR PULMONARY EMBOLUS. LARGE WEDGE-SHAPED DEFECT INVOLVING THE ANTERIOR BASAL SEGMENTS LEFT LOWER LOBE AND LINGULA WHICH ME BE SECONDARY TO PATIENT'S CARDIOMEGALY HOWEVER UNABLE TO CONFIRM PATIENT WAS UNABLE TO TOLERATE VENTILATION THIS PROJECTION. Chest/Abdomen CTA 12/08/16 11:18 IMPRESSION: Small bilateral pleural effusions. NO PULMONARY EMBOLI. Knee X-Ray 12/09/16 14:06 IMPRESSION: No acute fractures identified. Mild arthritic change. Status: Imported from PACS Assessment & Plan - Diagnosis (1) Primary osteoarthritis of both knees Is this a current diagnosis for this admission?: YesPlan: 86-year-old white female status post left knee arthroplasty with acceptable clinical result now with progressive right knee pain and functional disability secondary osteoarthritis. today she will undergo an injection with a combination of marcaine and depo-medrol for temporary pain relief and allow her to begin to mobilize. - Time Time Spent: 50 to 70 Minutes - Plan Summary Plan Summary: under sterile conditions a 22-gauge needle was advanced through a medial infrapatellar portal and used to introduce 3 cc of 0.55 marcaine and 80 mg of depo-medrol. the needles removed and the portal is covered with an adhesive dressing
[2016-12-11] MEDS: INSULIN LISPRO 100 UNIT/ML 3 ML VIAL SUBCUT PRN ×2 (17:27→21:30)
[2016-12-11] MEDS: ACETAMINOPHEN 325 MG TABLET PO PRN (18:13)
[2016-12-12] MEDS: LEVOTHYROXINE SODIUM 0.05 MG TABLET PO SCH (05:42)
--- NOTE | 2016-12-12 07:21 | PDOC PROGRESS REPORT ---
Subjective Progress Note for:: 12/12/16 Subjective:: patient's right knee pain is considerably improved following an injection yesterday Physical Exam Vital Signs: Temp Pulse Resp BP Pulse Ox 36.4 C 69 16 132/42 H 97 12/12/16 00:20 12/12/16 02:00 12/12/16 00:20 12/12/16 00:20 12/12/16 00:20 Intake & Output 12/11/16 12/12/16 12/13/16 06:59 06:59 06:59 Intake Total 1585 955 Output Total 350 Balance 1585 605 Weight 97.8 kg 96.4 kg General appearance: PRESENT: no acute distress Head exam: PRESENT: normocephalic Respiratory exam: PRESENT: unlabored Cardiovascular exam: PRESENT: RRR Vascular exam: PRESENT: normal capillary refill GI/Abdominal exam: PRESENT: soft Rectal exam: PRESENT: deferred Extremities exam: PRESENT: other - pain-free passive range of motion of the right knee a stranger's interventions on the right. Neurological exam: PRESENT: alert - we do there, awake, oriented to person, oriented to place, oriented to time, oriented to situation, CN II-XII grossly intact. ABSENT: motor sensory deficit Results Laboratory Results: 12/11/16 03:50 12/11/16 03:50 12/06/16 12/06/16 12/07/16 17:48 23:40 05:45 Troponin I 0.229 0.429 0.391 Impressions: Abdomen/Pelvis CT 12/05/16 20:13 IMPRESSION: No evidence for bowel obstruction. NO ACUTE FINDING IN THE ABDOMEN OR PELVIS ON CT SCAN WITH IV CONTRAST. Chest X-Ray 12/06/16 00:00 IMPRESSION: NO ACUTE CARDIOPULMONARY PROCESS. NO SIGNIFICANT CHANGE FROM PRIOR STUDY Lung Scan-VQ NM 12/06/16 19:12 IMPRESSION: INDETERMINATE FOR PULMONARY EMBOLUS. LARGE WEDGE-SHAPED DEFECT INVOLVING THE ANTERIOR BASAL SEGMENTS LEFT LOWER LOBE AND LINGULA WHICH ME BE SECONDARY TO PATIENT'S CARDIOMEGALY HOWEVER UNABLE TO CONFIRM PATIENT WAS UNABLE TO TOLERATE VENTILATION THIS PROJECTION. Chest/Abdomen CTA 12/08/16 11:18 IMPRESSION: Small bilateral pleural effusions. NO PULMONARY EMBOLI. Knee X-Ray 12/09/16 14:06 IMPRESSION: No acute fractures identified. Mild arthritic change. Assessment & Plan - Diagnosis (1) Primary osteoarthritis of both knees Is this a current diagnosis for this admission?: Yes
--- NOTE | 2016-12-12 08:15 | PDOC PROGRESS REPORT ---
Subjective Progress Note for:: 12/12/16 Subjective:: The patient states to feel much better. Her right knee is feeling much better since she had an injection of cortisone. She did have some pain yesterday but she was able to ambulate. Discussed the need to walk with a walker or cane. Physical Exam Vital Signs: Temp Pulse Resp BP Pulse Ox 97.5 F 83 16 132/42 H 97 12/12/16 00:20 12/12/16 07:00 12/12/16 00:20 12/12/16 00:20 12/12/16 00:20 Intake & Output 12/11/16 12/12/16 12/13/16 06:59 06:59 06:59 Intake Total 1585 955 Output Total 350 Balance 1585 605 Weight 97.8 kg 96.4 kg General appearance: PRESENT: no acute distress Head exam: PRESENT: atraumatic Eye exam: PRESENT: conjunctiva pink Neck exam: ABSENT: carotid bruit Respiratory exam: PRESENT: clear to auscultation italo Cardiovascular exam: PRESENT: RRR Pulses: PRESENT: +1 pedal pulses bilateral Vascular exam: PRESENT: normal capillary refill GI/Abdominal exam: PRESENT: normal bowel sounds, soft Extremities exam: PRESENT: tenderness Musculoskeletal exam: PRESENT: ambulatory Neurological exam: PRESENT: alert, awake Results Laboratory Results: 12/11/16 03:50 12/11/16 03:50 12/06/16 12/06/16 12/07/16 17:48 23:40 05:45 Troponin I 0.229 0.429 0.391 Impressions: Abdomen/Pelvis CT 12/05/16 20:13 IMPRESSION: No evidence for bowel obstruction. NO ACUTE FINDING IN THE ABDOMEN OR PELVIS ON CT SCAN WITH IV CONTRAST. Chest X-Ray 12/06/16 00:00 IMPRESSION: NO ACUTE CARDIOPULMONARY PROCESS. NO SIGNIFICANT CHANGE FROM PRIOR STUDY Lung Scan-VQ NM 12/06/16 19:12 IMPRESSION: INDETERMINATE FOR PULMONARY EMBOLUS. LARGE WEDGE-SHAPED DEFECT INVOLVING THE ANTERIOR BASAL SEGMENTS LEFT LOWER LOBE AND LINGULA WHICH ME BE SECONDARY TO PATIENT'S CARDIOMEGALY HOWEVER UNABLE TO CONFIRM PATIENT WAS UNABLE TO TOLERATE VENTILATION THIS PROJECTION. Chest/Abdomen CTA 12/08/16 11:18 IMPRESSION: Small bilateral pleural effusions. NO PULMONARY EMBOLI. Knee X-Ray 12/09/16 14:06 IMPRESSION: No acute fractures identified. Mild arthritic change. Assessment & Plan - Diagnosis (1) Knee pain Qualifiers: Laterality: right Chronicity: acute Qualified Code(s): M25.561 - Pain in right knee Is this a current diagnosis for this admission?: YesPlan: Improving after the injection of methylprednisolone and Marcaine (2) Diabetes 1.5, managed as type 2 Is this a current diagnosis for this admission?: YesPlan: We will continue with insulin and oral medications (3) Chest pain Qualifiers: Chest pain type: chest pain due to myocardial ischemia Is this a current diagnosis for this admission?: YesPlan: Completely resolved. No shortness of breath or chest pain for the past 3 days (4) Diarrhea Qualifiers: Diarrhea type: infectious Qualified Code(s): A09 - Infectious gastroenteritis and colitis, unspecified Plan: Most probably secondary to food poisoning resolved (5) Urinary tract infection Qualifiers: Urinary tract infection type: acute cystitis Hematuria presence: without hematuria Qualified Code(s): N30.00 - Acute cystitis without hematuria Is this a current diagnosis for this admission?: YesPlan: Symptoms resolved. We will stop the antibiotics
[2016-12-12] MEDS: FOLIC ACID 1 MG TABLET PO SCH ×2 (09:33)
[2016-12-12] MEDS: ISOSORBIDE MONONITRATE 30 MG TAB.ER.24H PO SCH (09:33)
[2016-12-12] MEDS: ASPIRIN 81 MG TABLET, CHEWABLE PO SCH (09:33)
[2016-12-12] MEDS: RAMIPRIL 2.5 MG CAPSULE PO SCH (09:34)
[2016-12-12] MEDS: MULTIVITAMIN TABLET PO SCH (09:34)
[2016-12-12] MEDS: METOPROLOL TARTRATE 50 MG TABLET PO SCH ×2 (09:35→21:56)
[2016-12-12] MEDS: CLOPIDOGREL BISULFATE 75 MG TABLET PO SCH (09:36)
[2016-12-12] MEDS: LACTOBACILLUS ACIDOPHILUS 250 MG TAB PO SCH ×2 (09:36→17:41)
[2016-12-12] MEDS: NITROGLYCERIN 10 MG (0.4 MG/HR) PATCH.TD24 TOP SCH (09:36)
[2016-12-12] MEDS: DOCUSATE SODIUM 100 MG CAPSULE PO SCH (09:36)
[2016-12-12] MEDS: NITROGLYCERIN 0.4 MG/TAB 25 TAB/BOTTLE SL SCH ×6 (09:38→17:23)
[2016-12-12 09:45] LABS: CREATINE KINASE MB 2.35 ng/mL (<4.55); TROPONIN I 0.058 ng/mL
[2016-12-12] MEDS ORDERED: LEVOTHYROXINE SODIUM 0.05 MG TABLET PO SCH (10:00)
[2016-12-12] MEDS ORDERED: [UNRECOGNIZED DRUG - OTHER] PO SCH (10:00)
[2016-12-12] MEDS ORDERED: [UNRECOGNIZED DRUG - OTHER] PO SCH (10:00)
[2016-12-12] MEDS ORDERED: METOPROLOL TARTRATE 50 MG TABLET PO SCH (10:00)
[2016-12-12] MEDS: POTASSIUM CHLORIDE 10 MEQ TABLET.SA PO SCH ×2 (16:14→21:56)
[2016-12-12] MEDS: ACETAMINOPHEN 325 MG TABLET PO SCH ×2 (16:15→21:56)
[2016-12-12] MEDS: INSULIN LISPRO 100 UNIT/ML 3 ML VIAL SUBCUT PRN (17:42)
[2016-12-12 21:40] LABS: CREATINE KINASE MB 2.96 ng/mL (<4.55); TROPONIN I 0.053 ng/mL
[2016-12-13] MEDS: NITROGLYCERIN 0.4 MG/TAB 25 TAB/BOTTLE SL PRN ×3 (01:39→01:51)
[2016-12-13] MEDS ORDERED: NITROGLYCERIN 0.4 MG/TAB 25 TAB/BOTTLE SL PRN (01:50)
[2016-12-13] MEDS: ACETAMINOPHEN 325 MG TABLET PO SCH (05:40)
[2016-12-13] MEDS: LEVOTHYROXINE SODIUM 0.05 MG TABLET PO SCH (05:40)
[2016-12-13 06:24] LABS: HEMATOCRIT 35.5 % (36.0-47.0); HEMOGLOBIN 11.7 g/dL (12.0-15.5); HGB HCT DIFFERENCE -0.4; MEAN CORPUSCULAR HEMOGLOBIN 29.5 pg (27.0-33.4); MEAN CORPUSCULAR HGB CONC 33.1 g/dL (32.0-36.0); MEAN CORPUSCULAR VOLUME 89 fl (80-97); RED BLOOD COUNT 3.98 10^6/uL (3.72-5.28); RED CELL DISTRIBUTION WIDTH 13.8 % (11.5-14.0); WHITE BLOOD COUNT 13.1 10^3/uL (4.0-10.5)
[2016-12-13 06:45] LABS: ALANINE AMINOTRANSFERASE 73 U/L (9-52); ALBUMIN 3.4 g/dL (3.5-5.0); ALKALINE PHOSPHATASE 65 U/L (38-126); ANION GAP 11 (5-19); ASPARTATE AMINO TRANSFERASE 72 U/L (14-36); BILIRUBIN,DIRECT 0.3 mg/dL (0.0-0.4); BILIRUBIN,TOTAL 0.5 mg/dL (0.2-1.3); BLOOD UREA NITROGEN 24 mg/dL (7-20); CALCIUM 9.4 mg/dL (8.4-10.2); CARBON DIOXIDE 24 mmol/L (22-30); CHLORIDE 106 mmol/L (98-107); CREATININE RESULT 0.73 mg/dL (0.52-1.25); GLUCOSE 123 mg/dL (75-110); POTASSIUM 5.7 mmol/L (3.6-5.0); SODIUM 140.8 mmol/L (137-145); TOTAL PROTEIN 6.5 g/dL (6.3-8.2)
--- NOTE | 2016-12-13 08:34 | PDOC DISCHARGE SUMMARY ---
General - Admit/Disc Date/PCP Admission Date/Primary Care Provider: 12/06/16 16:33 PIETRO CASON, Discharge Date: 12/13/16 - Discharge Diagnosis (1) Knee pain Is this a current diagnosis for this admission?: Yes (2) Diabetes 1.5, managed as type 2 Is this a current diagnosis for this admission?: Yes (3) Chest pain Is this a current diagnosis for this admission?: Yes (5) Urinary tract infection Is this a current diagnosis for this admission?: Yes - Additional Information Resuscitation Status: Full Code Discharge Diet: Diabetic Discharge Activity: Activity As Tolerated Home Medications: Acetaminophen [Tylenol 325 mg Tablet] 650 mg PO Q8 12/06/16 Aspirin [Aspirin 81 mg Chewable Tablet] 81 mg PO DAILY 12/06/16 Docusate Sodium [Colace 100 mg Capsule] 100 mg PO DAILY 12/06/16 Ergocalciferol (Vitamin D2) [Drisdol 50,000 unit (1.25MG) Capsule] 50,000 unit PO CHEN 12/06/16 Folic Acid [Folvite 1 mg Tablet] 1 mg PO DAILY 12/06/16 Gluc Chen/Chondro Chen A/Vit C/Mn [Glucosamine Chondroitin Tab] 1 tab PO DAILY 12/06 Hydrochlorothiazide [Hydrodiuril 12.5 mg Capsule] 12.5 mg PO DAILY 12/06/16 Levothyroxine Sodium [Synthroid] 50 mcg PO DAILY 12/06/16 Lisinopril [Prinivil 10 mg Tablet] 10 mg PO DAILY 12/06/16 Metformin HCl [Glucophage] 500 mg PO QHS 12/06/16 Metoprolol Tartrate [Lopressor 50 mg Tablet] 50 mg PO BID 12/06/16 Multivitamin [One-A-Day Essential] 1 tab PO DAILY 12/06/16 Nitroglycerin [Nitro-Dur 10 mg (0.4MG/Hr) Transdermal Patch] 1 patch TOP DAILY 12/06/16 Nitroglycerin [Nitrostat] 1 tab SL Q5M 12/06/16 Vit C/E/Zn/Coppr/Lutein/Zeaxan [Preservision Areds 2 Softgel] 2 cap PO BID 12/06 History of Present Illness History of Present Illness: JUAN BRANTLEY is a 86 year old female Hospital Course Hospital Course: The patient did well during the hospitalization. Her gastrointestinal symptoms have resolved. Her urinary tract infection symptoms have been treated and controlled with antibiotics. She has completed 5 days of antibiotics. She did not have any recurrence of dysuria. She had trouble with her right knee and after several attempts with oral medications a decision has been made to have an orthopedic injecting knee with cortisone which have improved her symptoms. She was able to ambulate with a walker without any pain. Her cardiac enzymes have remained stable and trending down. The patient does have a history of stable angina. She is being followed by the inspector subassembly. The family and the inspector subassembly have decided for conservative treatments. On the day of discharge she appeared comfortable in no acute distress vital signs stable neck supple no JVD no bruits chest clear to auscultation and percussion heart S1-S2 RRR abdomen softball sounds positive extremities no edema cyanosis or clubbing for range of motion of the right knee. BRIEN hose in place and patient will be discharged home in stable condition and with stable vital signs. Physical Exam Vital Signs: Temp Pulse Resp BP Pulse Ox 97.6 F 73 16 134/48 H 98 12/13/16 07:23 12/13/16 07:23 12/13/16 07:23 12/13/16 07:23 12/13/16 07:23 Intake & Output 12/12/16 12/13/16 12/14/16 06:59 06:59 06:59 Intake Total 955 905 Output Total 350 Balance 605 905 Weight 96.4 kg 91.5 kg Results Laboratory Results: 12/13/16 05:48 12/13/16 05:48 12/13/16 12/13/16 05:48 05:48 WBC 13.1 H RBC 3.98 Hgb 11.7 L Hct 35.5 L MCV 89 MCH 29.5 MCHC 33.1 RDW 13.8 Plt Count 281 Sodium 140.8 Potassium 5.7 H Chloride 106 Carbon Dioxide 24 Anion Gap 11 BUN 24 H Creatinine 0.73 Est GFR ( Amer) > 60 Est GFR (Non-Af Amer) > 60 Glucose 123 H Calcium 9.4 Total Bilirubin 0.5 AST 72 H ALT 73 H Alkaline Phosphatase 65 Total Protein 6.5 Albumin 3.4 L 12/06/16 12/06/16 12/07/16 17:48 23:40 05:45 Creatine Kinase CK-MB (CK-2) Troponin I 0.229 0.429 0.391 12/12/16 12/12/16 12/12/16 08:59 08:59 20:25 Creatine Kinase 79 78 CK-MB (CK-2) 2.35 Troponin I 0.058 12/12/16 20:25 Creatine Kinase CK-MB (CK-2) 2.96 Troponin I 0.053 Impressions: Abdomen/Pelvis CT 12/05/16 20:13 IMPRESSION: No evidence for bowel obstruction. NO ACUTE FINDING IN THE ABDOMEN OR PELVIS ON CT SCAN WITH IV CONTRAST. Chest X-Ray 12/06/16 00:00 IMPRESSION: NO ACUTE CARDIOPULMONARY PROCESS. NO SIGNIFICANT CHANGE FROM PRIOR STUDY Lung Scan-VQ NM 12/06/16 19:12 IMPRESSION: INDETERMINATE FOR PULMONARY EMBOLUS. LARGE WEDGE-SHAPED DEFECT INVOLVING THE ANTERIOR BASAL SEGMENTS LEFT LOWER LOBE AND LINGULA WHICH ME BE SECONDARY TO PATIENT'S CARDIOMEGALY HOWEVER UNABLE TO CONFIRM PATIENT WAS UNABLE TO TOLERATE VENTILATION THIS PROJECTION. Chest/Abdomen CTA 12/08/16 11:18 IMPRESSION: Small bilateral pleural effusions. NO PULMONARY EMBOLI. Knee X-Ray 12/09/16 14:06 IMPRESSION: No acute fractures identified. Mild arthritic change. Plan Discharge Plan: We'll discharge home with family. Continue ambulation with a walker. Follow up in the office in one week. We will consider transitioning to cane.
[2016-12-13] MEDS: LACTOBACILLUS ACIDOPHILUS 250 MG TAB PO SCH (10:12)
[2016-12-13] MEDS: CLOPIDOGREL BISULFATE 75 MG TABLET PO SCH (10:12)
[2016-12-13] MEDS: ASPIRIN 81 MG TABLET, CHEWABLE PO SCH (10:13)
[2016-12-13] MEDS: FOLIC ACID 1 MG TABLET PO SCH (10:13)
[2016-12-13] MEDS: NITROGLYCERIN 10 MG (0.4 MG/HR) PATCH.TD24 TOP SCH (10:13)
[2016-12-13] MEDS: DOCUSATE SODIUM 100 MG CAPSULE PO SCH (10:13)
[2016-12-13] MEDS: METOPROLOL TARTRATE 50 MG TABLET PO SCH (10:13)
[2016-12-13] MEDS: MULTIVITAMIN TABLET PO SCH (10:13)
[2016-12-13] MEDS: RAMIPRIL 2.5 MG CAPSULE PO SCH (10:15)
[2016-12-13 11:56] VITALS: BP 144/66
[2016-12-15] MEDS ORDERED: ERGOCALCIFEROL (VITAMIN D2) 50000 UNIT (1.25 MG) CAPSULE PO SCH (08:16)
== END 2016-12-13 12:55 | disposition home health service (06) | DRG 640 ==
LOC: ER 18:29 → UNDOADMOB 23:37 → EH 23:37 → 4N 12-06 02:45 → OBSVTOIN 12-06 16:33
PROVIDERS: ADMIT Internal Medicine; ATTEND Internal Medicine
PROC: 3E0U33Z Introduction of Anti-inflammatory into Joints, Percutaneous Approach (ICD-10-PCS; principal; 2016-12-11)
PROC: 3E0U3BZ Introduction of Anesthetic Agent into Joints, Percutaneous Approach (ICD-10-PCS; 2016-12-11)
DX: E86.0 Dehydration (principal); A05.9 Bacterial foodborne intoxication, unspecified; I21.4 Non-ST elevation (NSTEMI) myocardial infarction; N30.00 Acute cystitis without hematuria; E87.6 Hypokalemia; M17.0 Bilateral primary osteoarthritis of knee; E11.9 Type 2 diabetes mellitus without complications; I10 Essential (primary) hypertension; E78.5 Hyperlipidemia, unspecified; I25.10 Atherosclerotic heart disease of native coronary artery without angina pectoris; K57.90 Diverticulosis of intestine, part unspecified, without perforation or abscess without bleeding; Z79.84 Long term (current) use of oral hypoglycemic drugs; Z79.82 Long term (current) use of aspirin; Z79.899 Other long term (current) drug therapy; Z86.73 Personal history of transient ischemic attack (TIA), and cerebral infarction without residual deficits; I25.2 Old myocardial infarction; Z90.49 Acquired absence of other specified parts of digestive tract; Z90.710 Acquired absence of both cervix and uterus; Z88.1 Allergy status to other antibiotic agents; Z88.8 Allergy status to other drugs, medicaments and biological substances
CPT/HCPCS: 36415; 71020; 71275; 74177; 78452; 78582; 80048; 80053; 81001; 82550; 82553; 82962; 83605; 83690; 84484; 85025; 85027; 87045; 87086; 87088; 87186; 87205; 87493; 89055; 93005; 93010; 93017; 93306; 96361; 96365; 99284; A9500; A9540; A9567; G0378; G8978-GP; G8979-GP; J0696; J1644; J1650; J1815; J2785; J3490; J7030; Q9969

== ENCOUNTER → 2017-01-20 | Outpatient (CLI) | payer MEDICARE, BC, OTHER | LOC: OD 07:31 | PROVIDERS: ATTEND Internal Medicine | DX: R07.2 Precordial pain (principal); R06.02 Shortness of breath; R09.89 Other specified symptoms and signs involving the circulatory and respiratory systems; I10 Essential (primary) hypertension; I48.0 Paroxysmal atrial fibrillation; I35.0 Nonrheumatic aortic (valve) stenosis; E11.9 Type 2 diabetes mellitus without complications; E78.4 Other hyperlipidemia; I25.2 Old myocardial infarction; I34.0 Nonrheumatic mitral (valve) insufficiency; Z79.899 Other long term (current) drug therapy | CPT/HCPCS: 36415; 83880 ==

== ENCOUNTER → 2017-03-12 | Outpatient (CLI) | payer MEDICARE, BC, OTHER ==
[2017-03-12 10:33] LABS: CREATININE RESULT 0.76 mg/dL (0.52-1.25)
== END ==
LOC: OD 08:46
PROVIDERS: ATTEND Nurse Practitioner
DX: E11.9 Type 2 diabetes mellitus without complications (principal); Z79.899 Other long term (current) drug therapy
CPT/HCPCS: 36415; 82565

== ENCOUNTER → 2017-08-07 | Outpatient (CLI) | payer MEDICARE, BC, OTHER ==
--- NOTE | 2017-08-07 12:51 | RADIOLOGY REPORT (SQ) ---
EXAM DESCRIPTION: VENOUS UNILATERAL LOWER COMPLETED DATE/TIME: 08/07/2017 12:17 pm REASON FOR STUDY: PAIN SWELLING M79.662 PAIN IN LEFT LOWER LEG M79.89 OTHER SPECIFIED SOFT TISSUE DISORDERS S89.90XA UNSPECIFIED INJURY OF UNSPECIFIED LOWER LEG, INIT E COMPARISON: None. TECHNIQUE: Dynamic and static espinoza scale and color images acquired of the left leg venous system. Se lected spectral images acquired with additional compression and augmentation maneuvers. The contralat eral common femoral vein and saphenofemoral junction were also imaged. Images stored on PACS. LIMITATIONS: None. FINDINGS: LEFT COMMON FEMORAL: Normal phasicity, compression and augmentation. No visualized echogenic material on g ray scale. No defects on color images. FEMORAL: Normal compression and augmentation. No visualized echogenic material on espinoza scale. No defe cts on color images. POPLITEAL: Normal compression, augmentation. No visualized echogenic material on espinoza scale. No defec ts on color images. CALF VESSELS: Normal compression, augmentation. No visualized echogenic material on espinoza scale. No de fects on color images. GSV and SSV: Normal compression, augmentation. No visualized echogenic material on espinoza scale. No def ects on color images. ANY DEEP VENOUS INSUFFICIENCY: Not evaluated. ANY EVIDENCE OF POPLITEAL CYST: No. OTHER: No other significant finding. RIGHT COMMON FEMORAL VEIN AND SAPHENOFEMORAL JUNCTION: Normal phasicity, compression and augmentation. No visualized echogenic material on espinoza scale. No de fects on color images. IMPRESSION: NO EVIDENCE OF DVT OR SVT IN THE LEFT LEG. TECHNICAL DOCUMENTATION: JOB ID: [id number] [employer]- All Rights Reserved
--- NOTE | 2017-08-07 13:08 | RADIOLOGY REPORT (SQ) ---
EXAM DESCRIPTION: TIBIA FIBULA LEFT COMPLETED DATE/TIME: 08/07/2017 12:35 pm REASON FOR STUDY: S89.90XA UNSPECIFIED INJURY OF UNSPECIFIED LOWER LEG, INIT ENCNTR M79.662 PAIN IN LEFT LOWER LEG M79.89 OTHER SPECIFIED SOFT TISSUE DISORDERS S89.90XA UNSPECIFIED INJURY OF UNSPECI FIED LOWER LEG, INIT E COMPARISON: None. NUMBER OF VIEWS: Two views. TECHNIQUE: Two radiographic images acquired of the left tibia and fibula to include the knee and ank le in at least one projection. LIMITATIONS: None. FINDINGS: MINERALIZATION: Normal. BONES: There is a total knee arthroplasty. No acute fracture or dislocation. SOFT TISSUES: No obvious swelling or foreign body. OTHER: No other significant finding. IMPRESSION: NEGATIVE STUDY OF THE LEFT TIBIA AND FIBULA. NO RADIOGRAPHIC EVIDENCE OF ACUTE INJURY. TECHNICAL DOCUMENTATION: JOB ID: [id number] [employer]- All Rights Reserved
== END ==
LOC: SP 11:30
PROVIDERS: ATTEND Internal Medicine
DX: S89.92XA Unspecified injury of left lower leg, initial encounter (principal); X58.XXXA Exposure to other specified factors, initial encounter; Y93.9 Activity, unspecified; Y92.9 Unspecified place or not applicable; Y99.9 Unspecified external cause status; M79.662 Pain in left lower leg; M79.89 Other specified soft tissue disorders
CPT/HCPCS: 93971

== ENCOUNTER 2017-10-27 16:44 | Emergency (ER) | payer MEDICARE, BC, OTHER ==
--- NOTE | 2017-10-27 17:07 | ER Document Report ---
ED General - General Mode of Arrival: Stretcher Information source: Patient TRAVEL OUTSIDE OF THE [place] IN LAST 30 DAYS: No - General Stated Complaint: FALL HEAD PAIN Notes: Patient is an 87 year old female with a history of cardiac stents presents to the emergency department due to a fall. Patient states she was in the kitchen when she hit her forehead on the kitchen cabinet which disoriented her and caused her to fall. Patient states she was able to crawl to her phone and call the ambulance. Patient denies any blurry vision. EMS states the patient is able to ambulate with assistance. Patient is currently on Plavix. (HIRAL EDWARD) - Related Data Allergies/Adverse Reactions: amoxicillin trihydrate [From Augmentin] Allergy (Verified 07/23/16 16:32) atorvastatin calcium [From Lipitor] Allergy (Verified 07/23/16 16:32) bacitracin [From Neosporin] Allergy (Verified 07/23/16 16:32) calcitonin,salmon,synthetic [From Miacalcin] Allergy (Verified 07/23/16 16:32) celecoxib [From Celebrex] Allergy (Verified 07/23/16 16:32) ezetimibe [From Vytorin 10-10] Allergy (Verified 07/23/16 16:32) gramicidin D [From Neosporin] Allergy (Verified 07/23/16 16:32) irbesartan [From Avapro] Allergy (Verified 07/23/16 16:32) meloxicam [From Mobic] Allergy (Verified 07/23/16 16:32) morphine [Morphine] Allergy (Verified 07/23/16 16:32) moxifloxacin HCl [From Avelox] Allergy (Verified 07/23/16 16:32) neomycin sulfate [From Neosporin] Allergy (Verified 07/23/16 16:32) polymyxin B [From Neosporin] Allergy (Verified 07/23/16 16:32) rofecoxib [From Vioxx] Allergy (Verified 07/23/16 16:32) simvastatin [From Vytorin 10-10] Allergy (Verified 07/23/16 16:32) tetracycline [Tetracycline] Allergy (Verified 07/23/16 16:32) Past Medical History - General Information source: Patient - Social History Smoking Status: Former Smoker Cigarette use (# per day): No Chew tobacco use (# tins/day): No Smoking Education Provided: No Frequency of alcohol use: None Family History: Reviewed & Not Pertinent, Hypertension - Past Medical History Cardiac Medical History: Reports: Hx Atrial Fibrillation, Hx Coronary Artery Disease, Hx Heart Attack - STATES TOLD HAD SILENT [place], Hx Hypertension Neurological Medical History: Reports: 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 Endocrine Medical History: Reports: Hx Diabetes Mellitus Type 2 Musculoskeltal Medical History: Reports Hx Arthritis Past Surgical History: Reports: Hx Cholecystectomy, Hx Hysterectomy, Hx Oral Surgery - dental, Hx Orthopedic Surgery - L knee replacement, trigger finger, Hx Tonsillectomy - Immunizations Hx Diphtheria, Pertussis, Tetanus Vaccination: Yes - 12/29/12 Hx Pneumococcal Vaccination: 06/24/06 Review of Systems - Review of Systems Constitutional: No symptoms reported EENT: No symptoms reported Cardiovascular: No symptoms reported Respiratory: No symptoms reported Gastrointestinal: No symptoms reported Genitourinary: No symptoms reported Female Genitourinary: No symptoms reported Musculoskeletal: See HPI Skin: No symptoms reported Hematologic/Lymphatic: No symptoms reported Neurological/Psychological: No symptoms reported -: Yes All other systems reviewed and negative Physical Exam - General General appearance: Appears well, Alert In distress: None - HEENT Head: Normocephalic, Other - Hematoma on the dorsal aspect of head, approximately 5x5 cm. Hematoma to the top of the head, approximatley 2x2 cm. Eyes: Normal Conjunctiva: Normal Extraocular movements intact: Yes Pupils: PERRL Neck: Normal - Respiratory Respiratory status: No respiratory distress Chest status: Nontender Breath sounds: Normal Chest palpation: Normal - Cardiovascular Rhythm: Regular Heart sounds: Normal auscultation Murmur: Yes - 1/6 systolic murmur Friction rub: No Gallop: None auscultated - Abdominal Inspection: Normal Distension: No distension Bowel sounds: Normal Tenderness: Nontender Organomegaly: No organomegaly - Back Back: Normal, Nontender. No: Deformity/step-off, CVA tenderness - Extremities General upper extremity: Normal inspection, Normal ROM General lower extremity: Tender - tender to palpation and tender with movmement of the right knee., Normal ROM Knee: Tender - right knee tender with palpation and movement - Neurological Neuro grossly intact: Yes Cognition: Normal Orientation: AAOx4 Charla Coma Scale Eye Opening: Spontaneous [place] Coma Scale Verbal: Oriented [place] Coma Scale Motor: Obeys Commands Charla Coma Scale Total: 15 Speech: Normal - Psychological Associated symptoms: Normal affect, Normal mood - Skin Skin Temperature: Warm Skin Moisture: Dry Skin Color: Normal - General Notes: Patient is very lucid and alert and oriented x4. Very pleasant. (HIRAL EDWARD ) Course - Re-evaluation Re-evalutation: 10/27/17 17:38 Patient well-appearing in no acute distress alert and oriented well-appearing for age. Patient sustained a mechanical fall after bumping in the cabinet and then falling. She does have a large hematoma on the occipital aspect of her scalp and a small hematoma on her forehead. However, the patient does not have any acute abnormalities otherwise on CT of head and neck and denies any pain in her chest abdomen or upper or lower extremities other than mild right knee tenderness. Patient was able to ambulate with assistance by EMS and states that she feels safe to return to her home when she also has a walker that she uses. She states that she was able to ambulate at her baseline with the help of EMS and is comfortable to return home. Return precautions provided regarding her head injury (VANESSA CHICAS) Discharge - Discharge Clinical Impression: Fall Qualifiers: Encounter type: initial encounter Qualified Code(s): W19.XXXA - Unspecified fall, initial encounter Hematoma of scalp Qualifiers: Encounter type: initial encounter Qualified Code(s): S00.03XA - Contusion of scalp, initial encounter Condition: Good Disposition: HOME, SELF-CARE Instructions: Head Injury Precautions ([facility]), Scalp Hematoma ([facility]) Referrals: PIETRO CASON MD [Primary Care Provider] - Follow up as needed Scribe Attestation: 10/28/17 09:34 I personally performed the services described documentation, reviewed and edited the documentation which was dictated to describe my presence, and it accurately records my words and actions. (VANESSA CHICAS) Scribe Documentation - Scribe Written by Scribe:: Sam Rosales, 10/27/2017 17:12 acting as scribe for :: David
--- NOTE | 2017-10-27 17:15 | RADIOLOGY REPORT (SQ) ---
EXAM DESCRIPTION: CT CERVICAL SPINE WITHOUT COMPLETED DATE/TIME: 10/27/2017 4:59 pm REASON FOR STUDY: bed [address] narayanan s/p fall hit head on COMPARISON: None. TECHNIQUE: Axial images acquired through the cervical spine without intravenous contrast. Images re viewed with lung, soft tissue and bone windows. Reconstructed coronal and sagittal MPR images review ed. Images stored on PACS. All CT scanners at this facility use dose modulation, iterative reconstruction, and/or weight based d osing when appropriate to reduce radiation dose to as low as reasonably achievable (ALARA). [facility]: Dose Right [facility]: CareDose [facility]: Dose Right [facility]: Teradose 4D [facility]: Smart [employer] RADIATION DOSE: CT Rad equipment meets quality standard of care and radiation dose reduction techniq ues were employed. CTDIvol: 23.6 mGy. DLP: 503 mGy-cm. mGy. LIMITATIONS: None. FINDINGS: ALIGNMENT: Minor anterolisthesis noted C4-5 and C5-6, with extensive arthritic change face t joints. No obvious fracture. MINERALIZATION: Normal. VERTEBRAL BODIES: No fractures or dislocation. DISCS: Multilevel disc space narrowing with osteophytes. FACETS, LATERAL MASSES, POSTERIOR ELEMENTS: Facet arthropathy. No fractures. No dislocation. No ac robinson findings. HARDWARE: None in the spine. VISUALIZED RIBS: Limited visualization LUNG APICES AND SOFT TISSUES: No significant or acute findings. OTHER: No other significant finding. IMPRESSION: Cervical spondylosis. Minor anterolisthesis C4-5 and C5-6 with extensive arthritic change facet joints. No obvious fracture identified. TECHNICAL DOCUMENTATION: JOB ID: [id number] Quality ID # [id number]: Final reports with documentation of one or more dose reduction techniques (e.g., Au tomated exposure control, adjustment of the mA and/or kV according to patient size, use of iterative reconstruction technique) 2010 [employer]- All Rights Reserved
--- NOTE | 2017-10-27 17:16 | RADIOLOGY REPORT (SQ) ---
EXAM DESCRIPTION: CT HEAD WITHOUT COMPLETED DATE/TIME: 10/27/2017 4:59 pm REASON FOR STUDY: bed [address] narayanan s/p fall hit head on COMPARISON: 11/13/2009. TECHNIQUE: Axial images acquired through the brain without intravenous contrast. Images reviewed wi th bone, brain and subdural windows. Images stored on PACS. All CT scanners at this facility use dose modulation, iterative reconstruction, and/or weight based d osing when appropriate to reduce radiation dose to as low as reasonably achievable (ALARA). [facility]: Dose Right [facility]: CareDose [facility]: Dose Right [facility]: Teradose 4D [facility]: Smart [employer] RADIATION DOSE: CT Rad equipment meets quality standard of care and radiation dose reduction techniq ues were employed. CTDIvol: 64.6 mGy. DLP: 1163 mGy-cm. mGy. LIMITATIONS: None. FINDINGS: VENTRICLES: Normal size and contour. CEREBRUM: Confluent areas of decreased attenuation within the subcortical and periventricular white m atter compatible with chronic white matter change. Old lacunar infarcts in both basal ganglion regio ns. There is encephalomalacia of the parietal regions most prominent on the right. CEREBELLUM: No masses. No hemorrhage. No alteration of density. No evidence for acute infarction. EXTRAAXIAL SPACES: No fluid collections. No masses. ORBITS AND GLOBE: No intra- or extraconal masses. Normal contour of globe without masses. CALVARIUM: Changes compatible with hyperostosis frontalis interna. PARANASAL SINUSES: No fluid or mucosal thickening. SOFT TISSUES: There is a scalp hematoma over the left parietal region. . OTHER: No other significant finding. IMPRESSION: CHRONIC WHITE MATTER CHANGES. 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 SMALL SCA LP HEMATOMA OVER LEFT PARIETAL REGION. OTHERWISE, NO SIGNIFICANT ABNORMALITY SEEN. EVIDENCE OF ACUTE STROKE: NO. COMMENT: Quality ID # [id number]: Final reports with documentation of one or more dose reduction techniques (e.g., Automated exposure control, adjustment of the mA and/or kV according to patient size, use of iterative reconstruction technique) TECHNICAL DOCUMENTATION: JOB ID: [id number] [place]-69 2010 [employer]- All Rights Reserved
== END 2017-10-27 17:49 | disposition home or self-care (01) ==
LOC: ER 16:44
DX: S00.03XA Contusion of scalp, initial encounter (principal); R51 Headache; W18.00XA Striking against unspecified object with subsequent fall, initial encounter; Z87.891 Personal history of nicotine dependence
CPT/HCPCS: 70450; 72125; 99284

== ENCOUNTER 2017-11-08 09:16 | Emergency (ER) | payer MEDICARE, BC, OTHER ==
--- NOTE | 2017-11-08 09:34 | ER Document Report ---
ED Medical Screen (RME) - General Chief Complaint: Leg Pain Stated Complaint: LEG PAIN Time Seen by Provider: 11/08/17 09:30 Notes: Patient fell last week and was evaluated here after the fall. She had her head scanned, but today is complaining of pain in the left knee, thigh, and hip region which was not x-rayed or checked, according to the patient. She has had a left total knee replacement. She uses a walker to ambulate and is still able to do so at this time. Patient is on Plavix but no other blood thinners. She has bruising of the proximal left arm and lower left abdomen. Mild tenderness over the mid left thigh. 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 On Plavix as her only anticoagulant. TRAVEL OUTSIDE OF THE [place] IN LAST 30 DAYS: No - Related Data Allergies/Adverse Reactions: amoxicillin trihydrate [From Augmentin] Allergy (Verified 11/08/17 09:18) atorvastatin calcium [From Lipitor] Allergy (Verified 11/08/17 09:18) bacitracin [From Neosporin] Allergy (Verified 11/08/17 09:18) calcitonin,salmon,synthetic [From Miacalcin] Allergy (Verified 11/08/17 09:18) celecoxib [From Celebrex] Allergy (Verified 11/08/17 09:18) ezetimibe [From Vytorin 10-10] Allergy (Verified 11/08/17 09:18) gramicidin D [From Neosporin] Allergy (Verified 11/08/17 09:18) irbesartan [From Avapro] Allergy (Verified 11/08/17 09:18) meloxicam [From Mobic] Allergy (Verified 11/08/17 09:18) morphine [Morphine] Allergy (Verified 11/08/17 09:18) moxifloxacin HCl [From Avelox] Allergy (Verified 11/08/17 09:18) neomycin sulfate [From Neosporin] Allergy (Verified 11/08/17 09:18) polymyxin B [From Neosporin] Allergy (Verified 11/08/17 09:18) rofecoxib [From Vioxx] Allergy (Verified 11/08/17 09:18) simvastatin [From Vytorin 10-10] Allergy (Verified 11/08/17 09:18) tetracycline [Tetracycline] Allergy (Verified 11/08/17 09:18) Past Medical History - Social History Chew tobacco use (# tins/day): No Drug Abuse: None - Past Medical History Cardiac Medical History: Reports: Hx Atrial Fibrillation, Hx Coronary Artery Disease, Hx Heart Attack - STATES TOLD HAD SILENT [place], Hx Hypertension Neurological Medical History: Reports: 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 Endocrine Medical History: Reports: Hx Diabetes Mellitus Type 2 Renal/ Medical History: Denies: Hx Peritoneal Dialysis Musculoskeltal Medical History: Reports Hx Arthritis Past Surgical History: Reports: Hx Cholecystectomy, Hx Hysterectomy, Hx Oral Surgery - dental, Hx Orthopedic Surgery - L knee replacement, trigger finger, Hx Tonsillectomy - Immunizations Hx Diphtheria, Pertussis, Tetanus Vaccination: Yes - 12/29/12 Physical Exam - Vital signs Vitals: Temp Pulse Resp BP Pulse Ox 97.8 F 72 20 165/54 H 96 11/08/17 09:24 11/08/17 09:24 11/08/17 09:24 11/08/17 09:24 11/08/17 09:24 Course - Vital Signs Vital signs: Temp Pulse Resp BP Pulse Ox 97.8 F 72 20 165/54 H 96 11/08/17 09:24 11/08/17 09:24 11/08/17 09:24 11/08/17 09:24 11/08/17 09:24
--- NOTE | 2017-11-08 10:01 | ER Document Report ---
ED Extremity Problem, Lower - General Chief Complaint: Leg Pain Stated Complaint: LEG PAIN Time Seen by Provider: 11/08/17 09:30 Information source: Patient, Relative Notes: 87-year-old female that presents with some left upper thigh pain starting around 2-3 days ago. Patient did fall on the and no imaging was performed. Patient is on Plavix and she had imaging of the head at that time. Patient is oriented 4 at baseline according to the patient and the family. She denies any recent falls other than the episode on the . She states it is worse when she walks on it. She denies any calf pain or lower extremity pain. She denies any chest pain, shortness of breath, nausea, vomiting, fevers , or dysuria. She denies any lower abdominal pain. TRAVEL OUTSIDE OF THE [place] IN LAST 30 DAYS: No - HPI Patient complains to provider of: Pain Location: Thigh Occurred: Other - See above Where: Home Onset/Duration: Gradual Quality of pain: Achy Severity: Mild Pain Level: 2 Context: Other - See above Recent injury: Yes Associated symptoms: Other - See above Exacerbated by: Walking Relieved by: Nothing - Related Data Allergies/Adverse Reactions: amoxicillin trihydrate [From Augmentin] Allergy (Verified 11/08/17 09:18) atorvastatin calcium [From Lipitor] Allergy (Verified 11/08/17 09:18) bacitracin [From Neosporin] Allergy (Verified 11/08/17 09:18) calcitonin,salmon,synthetic [From Miacalcin] Allergy (Verified 11/08/17 09:18) celecoxib [From Celebrex] Allergy (Verified 11/08/17 09:18) ezetimibe [From Vytorin 10-10] Allergy (Verified 11/08/17 09:18) gramicidin D [From Neosporin] Allergy (Verified 11/08/17 09:18) irbesartan [From Avapro] Allergy (Verified 11/08/17 09:18) meloxicam [From Mobic] Allergy (Verified 11/08/17 09:18) morphine [Morphine] Allergy (Verified 11/08/17 09:18) moxifloxacin HCl [From Avelox] Allergy (Verified 11/08/17 09:18) neomycin sulfate [From Neosporin] Allergy (Verified 11/08/17 09:18) polymyxin B [From Neosporin] Allergy (Verified 11/08/17 09:18) rofecoxib [From Vioxx] Allergy (Verified 11/08/17 09:18) simvastatin [From Vytorin 10-10] Allergy (Verified 11/08/17 09:18) tetracycline [Tetracycline] Allergy (Verified 11/08/17 09:18) Past Medical History - General Information source: Patient, Relative - Social History Smoking Status: Never Smoker Cigarette use (# per day): No Chew tobacco use (# tins/day): No Smoking Education Provided: No Frequency of alcohol use: None Drug Abuse: None Family History: Reviewed & Not Pertinent, Hypertension Patient has suicidal ideation: No Patient has homicidal ideation: No - Past Medical History Cardiac Medical History: Reports: Hx Atrial Fibrillation, Hx Coronary Artery Disease, Hx Heart Attack - STATES TOLD HAD SILENT [place], Hx Hypertension Neurological Medical History: Reports: 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 Endocrine Medical History: Reports: Hx Diabetes Mellitus Type 2 Renal/ Medical History: Denies: Hx Peritoneal Dialysis Musculoskeltal Medical History: Reports Hx Arthritis Past Surgical History: Reports: Hx Cholecystectomy, Hx Hysterectomy, Hx Oral Surgery - dental, Hx Orthopedic Surgery - L knee replacement, trigger finger, Hx Tonsillectomy - Immunizations Hx Diphtheria, Pertussis, Tetanus Vaccination: Yes - 12/29/12 Hx Pneumococcal Vaccination: 06/24/06 Review of Systems - Review of Systems Constitutional: denies: Fever Cardiovascular: denies: Chest pain, Palpitations, Dyspnea Respiratory: denies: Cough, Short of breath Gastrointestinal: denies: Vomiting Genitourinary: denies: Dysuria Skin: Other - no hives. denies: Rash Neurological/Psychological: Other - no slurred speech -: Yes All other systems reviewed and negative Physical Exam - Vital signs Vitals: Temp Pulse Resp BP Pulse Ox 97.8 F 72 20 165/54 H 96 11/08/17 09:24 11/08/17 09:24 11/08/17 09:24 11/08/17 09:24 11/08/17 09:24 Notes: Reviewed vital signs and nursing note as charted by RN. CONSTITUTIONAL: Alert and oriented and responds appropriately to questions. Well -appearing; well-nourished HEAD: Normocephalic; atraumatic CARD: Regular rate and rhythm; no murmurs RESP: Normal chest excursion without splinting or tachypnea; breath sounds clear and equal bilaterally ABD/GI: Normal bowel sounds; non-distended; soft, non-tender to the lower abdominal region BACK: The back appears normal and is non-tender to palpation EXT: Normal ROM in all joints including the left hip. Patient has some mild tenderness without swelling or erythema to the left upper lateral thigh. It is not near the hip joint SKIN: Patient has old ecchymosis and bruising to the left lateral abdomen without tenderness, left lateral shoulder without tenderness, and to the forehead NEURO: Moves all extremities equally; Motor and sensory function intact PSYCH: The patient's mood and manner are appropriate. Grooming and personal hygiene are appropriate. Course - Re-evaluation Re-evalutation: 11/08/17 10:01 Given the history and physical examination we will x-ray the left leg. Patient currently has full range of motion of the hip. Vital signs are stable with an increased initial blood pressure that is now resolved. Patient has no leg swelling or calf pain. I do believe DVT to be unlikely. 11/08/17 10:54 No change in exam. Multiple x-rays as recorded. Patient is comfortable going home. I will provide orthopedic follow-up and have explained strict return precautions to both patient and family. - Vital Signs Vital signs: Temp Pulse Resp BP Pulse Ox 97.8 F 72 20 126/52 H 96 11/08/17 09:24 11/08/17 09:24 11/08/17 09:24 11/08/17 10:01 11/08/17 09:24 Discharge - Discharge Clinical Impression: Left thigh pain Condition: Good Disposition: HOME, SELF-CARE Additional Instructions: Come back immediately with any increased pain, change in location or quality of pain, leg swelling, weakness, or any other acute problems. Please follow-up with the primary doctor and orthopedics as we have discussed. Referrals: PIETRO CASON MD [Primary Care Provider] - Follow up as needed MEG BARAJAS DO [ACTIVE STAFF] - Follow up as needed
--- NOTE | 2017-11-08 10:13 | RADIOLOGY REPORT (SQ) ---
EXAM DESCRIPTION: KNEE LEFT 4 VIEW COMPLETED DATE/TIME: 11/08/2017 9:52 am REASON FOR STUDY: pain left knee after fall; s/p left TKR COMPARISON: None. NUMBER OF VIEWS: Four views. TECHNIQUE: AP, lateral, and both oblique radiographic images acquired of the left knee. LIMITATIONS: None. FINDINGS: MINERALIZATION: Normal. BONES: Intact knee arthroplasty. JOINT: No effusion. SOFT TISSUES: No soft tissue swelling. No radio-opaque foreign body. OTHER: No other significant finding. IMPRESSION: Intact knee arthroplasty. TECHNICAL DOCUMENTATION: JOB ID: [id number] [employer] All Rights Reserved Reading location - IP/workstation name: [email or web address]
--- NOTE | 2017-11-08 10:14 | RADIOLOGY REPORT (SQ) ---
EXAM DESCRIPTION: HIP LEFT AP/LATERAL COMPLETED DATE/TIME: 11/08/2017 9:52 am REASON FOR STUDY: fal injury left thigh; s/p left TKR COMPARISON: None. NUMBER OF VIEWS: Two views. TECHNIQUE: AP pelvis and additional frog-leg view of the left hip. LIMITATIONS: None. FINDINGS: MINERALIZATION: Normal. LEFT HIP: No fracture or dislocation. No worrisome bone lesions. RIGHT HIP: No fracture or dislocation. No worrisome bone lesions. PUBIS AND ISCHIUM: No fracture. PELVIS: No fracture. SACRUM: No fracture or dislocation. No worrisome bone lesions. LOWER LUMBAR SPINE: No fracture or dislocation. No worrisome bone lesions. No significant disc disea se. SOFT TISSUES: No findings. OTHER: No other significant finding. IMPRESSION: NEGATIVE STUDY OF THE LEFT HIP AND PELVIS. NO RADIOGRAPHIC EVIDENCE OF ACUTE INJURY. TECHNICAL DOCUMENTATION: JOB ID: [id number] [employer]- All Rights Reserved Reading location - IP/workstation name: [email or web address]
--- NOTE | 2017-11-08 10:39 | RADIOLOGY REPORT (SQ) ---
EXAM DESCRIPTION: FEMUR LEFT COMPLETED DATE/TIME: 11/08/2017 10:20 am REASON FOR STUDY: 5, one view portable COMPARISON: None. NUMBER OF VIEWS: One view. TECHNIQUE: Two radiographic images acquired of the left femur to include hip and knee in at least on e projection. LIMITATIONS: None. FINDINGS: MINERALIZATION: Normal. BONES: No acute fracture. No worrisome bone lesions. SOFT TISSUES: No obvious swelling or foreign body. OTHER: No other significant finding. IMPRESSION: NO RADIOGRAPHIC EVIDENCE OF ACUTE INJURY. TECHNICAL DOCUMENTATION: JOB ID: [id number] [employer]- All Rights Reserved Reading location - IP/workstation name: [email or web address]
[2017-11-08 11:17] VITALS: BP 130/60
== END 2017-11-08 11:15 | disposition home or self-care (01) ==
LOC: ER 09:16
DX: M79.652 Pain in left thigh (principal); I25.10 Atherosclerotic heart disease of native coronary artery without angina pectoris; I10 Essential (primary) hypertension; E11.9 Type 2 diabetes mellitus without complications; Z96.652 Presence of left artificial knee joint; Z79.02 Long term (current) use of antithrombotics/antiplatelets; Z88.0 Allergy status to penicillin; Z88.8 Allergy status to other drugs, medicaments and biological substances; Z88.3 Allergy status to other anti-infective agents; Z88.5 Allergy status to narcotic agent; Z88.1 Allergy status to other antibiotic agents
CPT/HCPCS: 99283

== ENCOUNTER → 2018-10-27 | Outpatient (CLI) | payer MEDICARE, BC, OTHER ==
[2018-10-27 09:23] LABS: ABSOLUTE EOSINOPHILS # (AUTO) 0.2 10^3/uL (0.0-0.6); ABSOLUTE LYMPHOCYTES (AUTO) 1.9 10^3/uL (0.5-4.7); ABSOLUTE MONOCYTES (AUTO) 0.6 10^3/uL (0.1-1.4); ABSOLUTE NEUT (AUTO) 5.4 10^3/uL (1.7-8.2); BASOPHILS % (AUTO) 0.5 % (0-2); EOSINOPHILS % (AUTO) 2.6 % (0-6); HEMATOCRIT 36.4 % (36.0-47.0); HEMOGLOBIN 12.3 g/dL (12.0-15.5); LYMPHOCYTES % (AUTO) 23.7 % (13-45); MEAN CORPUSCULAR HEMOGLOBIN 30.8 pg (27.0-33.4); MEAN CORPUSCULAR HGB CONC 33.9 g/dL (32.0-36.0); MEAN CORPUSCULAR VOLUME 91 fl (80-97); MONOCYTES % (AUTO) 7.4 % (3-13); PLATELET COUNT 192 10^3/uL (150-450); RED CELL DISTRIBUTION WIDTH 14.3 % (11.5-14.0); SEGMENTED NEUTROPHILS % (AUTO) 65.8 % (42-78); TOTAL CELLS COUNTED % (AUTO) 100 %; WHITE BLOOD COUNT 8.1 10^3/uL (4.0-10.5)
[2018-10-27 09:43] LABS: ALANINE AMINOTRANSFERASE 17 U/L (9-52); ALKALINE PHOSPHATASE 99 U/L (38-126); ANION GAP 5 (5-19); ASPARTATE AMINO TRANSFERASE 27 U/L (14-36); BILIRUBIN,DIRECT 0.2 mg/dL (0.0-0.4); BILIRUBIN,TOTAL 0.4 mg/dL (0.2-1.3); BLOOD UREA NITROGEN 30 mg/dL (7-20); CALCIUM 9.5 mg/dL (8.4-10.2); CARBON DIOXIDE 29 mmol/L (22-30); CHLORIDE 107 mmol/L (98-107); CHOLESTEROL 267.37 mg/dL (0-200); GLUCOSE 93 mg/dL (75-110); POTASSIUM 4.7 mmol/L (3.6-5.0); SODIUM 141.4 mmol/L (137-145); TOTAL PROTEIN 6.4 g/dL (6.3-8.2); TRIGLYCERIDES 229 mg/dL (<150)
[2018-10-27 09:54] LABS: DIRECT LDL 151 mg/dL (<100)
[2018-10-27 09:55] LABS: VLDL CHOLESTEROL 45.8 mg/dL (10-31)
[2018-10-28 11:39] LABS: CREATININE URINE 88.5 mg/dL (Not Estab.); MICROALBUMIN URINE 65.4 ug/mL (Not Estab.)
== END ==
LOC: OD 08:30
PROVIDERS: ATTEND Internal Medicine
DX: E11.8 Type 2 diabetes mellitus with unspecified complications (principal); I10 Essential (primary) hypertension; I25.10 Atherosclerotic heart disease of native coronary artery without angina pectoris; E78.5 Hyperlipidemia, unspecified; E03.9 Hypothyroidism, unspecified
CPT/HCPCS: 36415; 80053; 80061; 82043; 82570; 83036; 84443; 85025

== ENCOUNTER 2019-02-23 10:12 | Emergency (ER) | payer MEDICARE, BC, OTHER ==
[2019-02-23] MEDS ORDERED: HYDROCORTISONE ACETATE 25 MG SUPP.RECT PR ONE (11:20)
--- NOTE | 2019-02-23 11:22 | ER Document Report ---
ED General - General Chief Complaint: Rectal Bleeding Stated Complaint: RECTAL BLEEDING Time Seen by Provider: 02/23/19 10:35 Primary Care Provider: PIETRO CASON MD [Primary Care Provider] - Follow up in 3-5 days AYLIN OLIVA MD [ACTIVE STAFF] - Follow up as needed (general surgery ) Notes: Patient is a 88-year-old female that presents to the emergency department for chief complaint of rectal bleeding. Patient states that she strained to have a bowel movement this morning, she states she had a large bowel movement, and was harder, and afterwards she went to wipe and noticed blood on the toilet paper, she kept wiping until the whole roll was used, because she kept getting blood on it. She denies prior history of rectal bleeding, states she is only taking aspirin, no other blood thinners. She has been more constipated and usually does take stool softeners which she has not been taking recently, because she states she is been having a bowel movement about every day. She denies having any lightheadedness, dizziness, denies any black or tarry stools. Denies having any chest pain, abdominal pain. She states that the bleeding was painless. Past Medical History: CAD, diabetes mellitus, hypothyroidism Past Surgical History: TAVR, PCI with stenting Social History: Denies tobacco, alcohol or drug use, lives at home. Family History: Reviewed and noncontributory for presenting illness Allergies: Reviewed, see documented allergy list. REVIEW OF SYSTEMS: Other than noted above, the 12 point review of systems was reviewed with the patient and were negative, all pertinent findings are included in the HPI. PHYSICAL EXAMINATION: Vital signs reviewed, nursing noted reviewed. GENERAL: Elderly female, no acute distress HEAD: Atraumatic, normocephalic. EYES: Eyes appear normal, extraocular movements intact, sclera anicteric, conjunctiva are normal. ENT: nares patent, oropharynx clear without exudates. Moist mucous membranes. NECK: Normal range of motion, supple without lymphadenopathy LUNGS: Breath sounds clear to auscultation bilaterally and equal. No wheezes rales or rhonchi. HEART: Regular rate and rhythm without murmurs ABDOMEN: Soft, obese, nontender, normoactive bowel sounds. No rebound, guarding, or rigidity. No masses appreciated. Rectal exam: Patient was examined, with sheet rock sander present, there is a palpable internal hernia at the 6 o'clock position, slight oozing of blood, no pulsatile, or continuous bleeding noted. There was no fissure noted, and no palpable mass otherwise. EXTREMITIES: Nontender, good range of motion, no pitting or edema. NEUROLOGICAL: No focal neurological deficits. Moves all extremities spontaneously Motor and sensory grossly intact on exam. PSYCH: Normal mood, normal affect. SKIN: Warm, Dry, normal turgor, no rashes or lesions noted on exposed skin TRAVEL OUTSIDE OF THE [place] IN LAST 30 DAYS: No - Related Data Allergies/Adverse Reactions: amoxicillin trihydrate [From Augmentin] Allergy (Verified 11/08/17 09:18) atorvastatin calcium [From Lipitor] Allergy (Verified 11/08/17 09:18) bacitracin [From Neosporin] Allergy (Verified 11/08/17 09:18) calcitonin,salmon,synthetic [From Miacalcin] Allergy (Verified 11/08/17 09:18) celecoxib [From Celebrex] Allergy (Verified 11/08/17 09:18) ezetimibe [From Vytorin 10-10] Allergy (Verified 11/08/17 09:18) gramicidin D [From Neosporin] Allergy (Verified 11/08/17 09:18) irbesartan [From Avapro] Allergy (Verified 11/08/17 09:18) meloxicam [From Mobic] Allergy (Verified 11/08/17 09:18) morphine [Morphine] Allergy (Verified 11/08/17 09:18) moxifloxacin HCl [From Avelox] Allergy (Verified 11/08/17 09:18) neomycin sulfate [From Neosporin] Allergy (Verified 11/08/17 09:18) polymyxin B [From Neosporin] Allergy (Verified 11/08/17 09:18) rofecoxib [From Vioxx] Allergy (Verified 11/08/17 09:18) simvastatin [From Vytorin 10-10] Allergy (Verified 11/08/17 09:18) tetracycline [Tetracycline] Allergy (Verified 11/08/17 09:18) Past Medical History - Social History Smoking Status: Former Smoker Chew tobacco use (# tins/day): No Frequency of alcohol use: None Drug Abuse: None Family History: Reviewed & Not Pertinent, Hypertension Patient has suicidal ideation: No Patient has homicidal ideation: No - Past Medical History Cardiac Medical History: Reports: Hx Atrial Fibrillation, Hx Coronary Artery Disease, Hx Heart Attack - STATES TOLD HAD SILENT [place], Hx Hypertension Neurological Medical History: Reports: 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 Endocrine Medical History: Reports: Hx Diabetes Mellitus Type 2 Renal/ Medical History: Denies: Hx Peritoneal Dialysis Musculoskeletal Medical History: Reports Hx Arthritis Past Surgical History: Reports: Hx Cardiac Surgery - 2 stents and TAVR, Hx Cholecystectomy, Hx Hysterectomy, Hx Oral Surgery - dental, Hx Orthopedic Surgery - L knee replacement, trigger finger, Hx Tonsillectomy - Immunizations Hx Diphtheria, Pertussis, Tetanus Vaccination: Yes - 12/29/12 Hx Pneumococcal Vaccination: 06/24/06 Physical Exam - Vital signs Vitals: Temp Resp BP Pulse Ox 98 F 21 H 162/70 H 95 02/23/19 10:25 02/23/19 10:25 02/23/19 10:25 02/23/19 10:25 Course - Re-evaluation Re-evalutation: Patient seen and examined vital signs reviewed. Patient was evaluated and treated as appropriate for the patient's presenting symptoms and complaint, with consideration of any critical or life threatening conditions that may be associated with their obtained history and exam as noted above. The patient was re-evaluated and was hemodynamically stable, patient had hemorrhoid present, no active or brisk bleeding noted on rectal exam, likely hemorrhoidal bleeding, from the patient's bowel movement and straining this morning, advised her to monitor for any worsening bleeding or development of lightheadedness, she was given a rectal suppository, and given a prescription for Anusol as well and advised to follow-up with her primary care, also given referral to general surgery if she had continued issues with hemorrhoids. Evaluation was most consistent with hemorrhoids, rectal bleeding Plan of care was discussed with the patient at this point, after careful consideration I feel that that patient can be discharged from the emergency department, the patient was educated treatments and reasons to return to the emergency department based on their presumed diagnosis as noted above, they were advised to followup with a primary care physician in 2-3 days. Patient was agreeable to plan of care. *Note is created using voice recognition software and may contain spelling, syntax or grammatical errors. - Vital Signs Vital signs: Temp Pulse Resp BP Pulse Ox 97.9 F 76 18 154/64 H 98 02/23/19 11:45 02/23/19 11:45 02/23/19 11:45 02/23/19 11:37 02/23/19 11:45 Discharge - Discharge Clinical Impression: Rectal bleeding Hemorrhoids Qualifiers: Hemorrhoid type: unspecified Qualified Code(s): K64.9 - Unspecified hemorrhoids Condition: Stable Disposition: HOME, SELF-CARE Instructions: Hemorrhoids ([facility]) Additional Instructions: Please monitor for worsening bleeding, or if you develop lightheadedness, please return to the emergency department. You may follow-up with the surgeon, and they can help you with this, if you continue to have bleeding, their phone number has been provided with your discharge paperwork. You have also been prescribed a rectal suppository, which may be able to help strengthen hemorrhoids, and reduce any further bleeding. Prescriptions: Hydrocortisone Acetate [Anusol Hc 25 mg Supp.rect] 1 supp.rect GA BID #[id number] supp.rect Referrals: PIETRO CASON MD [Primary Care Provider] - Follow up in 3-5 days AYLIN OLIVA MD [ACTIVE STAFF] - Follow up as needed (general surgery )
[2019-02-23 11:38] VITALS: BP 154/64
== END 2019-02-23 11:46 | disposition home or self-care (01) ==
LOC: ER 10:12
DX: K62.5 Hemorrhage of anus and rectum (principal); K64.9 Unspecified hemorrhoids; I25.10 Atherosclerotic heart disease of native coronary artery without angina pectoris; E11.9 Type 2 diabetes mellitus without complications; E03.9 Hypothyroidism, unspecified; I48.91 Unspecified atrial fibrillation; Z79.82 Long term (current) use of aspirin; Z88.6 Allergy status to analgesic agent; Z88.3 Allergy status to other anti-infective agents; Z90.49 Acquired absence of other specified parts of digestive tract; Z90.710 Acquired absence of both cervix and uterus; Z96.652 Presence of left artificial knee joint; I25.2 Old myocardial infarction
CPT/HCPCS: 99283; J3490

== ENCOUNTER → 2019-12-28 | Outpatient (CLI) | payer MEDICARE, BC, OTHER ==
--- NOTE | 2019-12-28 14:17 | RADIOLOGY REPORT (SQ) ---
EXAM DESCRIPTION: VENOUS UNILATERAL LOWER IMAGES COMPLETED DATE/TIME: 12/28/2019 2:02 pm REASON FOR STUDY: RLE SWELLING M79.89 OTHER SPECIFIED SOFT TISSUE DISORDERS COMPARISON: 08/07/2017 TECHNIQUE: Dynamic and static espinoza scale and color images acquired of the right leg venous system. S elected spectral images acquired with additional compression and augmentation maneuvers. The contrala teral common femoral vein and saphenofemoral junction were also imaged. Images stored on PACS. LIMITATIONS: None. FINDINGS: COMMON FEMORAL: Normal phasicity, compression and augmentation. No visualized echogenic ma terial on espinoza scale. No defects on color images. FEMORAL: Normal compression and augmentation. No visualized echogenic material on espinoza scale. No defe cts on color images. POPLITEAL: Normal compression, augmentation. No visualized echogenic material on espinoza scale. No defec ts on color images. CALF VESSELS: Normal compression, augmentation. No visualized echogenic material on espinoza scale. No de fects on color images. GSV and SSV: Normal compression, augmentation. No visualized echogenic material on espinoza scale. No def ects on color images. ANY DEEP VENOUS INSUFFICIENCY: Not evaluated. ANY EVIDENCE OF POPLITEAL CYST: No. OTHER: No other significant finding. CONTRALATERAL COMMON FEMORAL VEIN AND SAPHENOFEMORAL JUNCTION: Normal phasicity, compression and augmentation. No visualized echogenic material on espinoza scale. No de fects on color images. IMPRESSION: NO EVIDENCE OF DVT OR SVT IN THE RIGHT LEG. TECHNICAL DOCUMENTATION: JOB ID: [id number] [employer]- All Rights Reserved Reading location - IP/workstation name: [email or web address]
== END ==
LOC: SP 12:26
PROVIDERS: ATTEND Internal Medicine
DX: M79.89 Other specified soft tissue disorders (principal)
CPT/HCPCS: 93971